=== PATIENT | female | born 1990 | race Caucasian/White ===

== ENCOUNTER → 2019-01-04 | Outpatient (CLI) | payer OTHER, SELFPAY ==
[2019-01-11 09:42] LABS: HPV APTIMA, High Risk Negative (Negative); HPV Reflexed? YES, CHARGE PATIENT
== END | disposition home or self-care (01) ==
LOC: LABSPEC 01-05 09:29
PROVIDERS: Visit Provider Obstetrics & Gynecology
DX: Z12.4 Encounter for screening for malignant neoplasm of cervix (principal)
CPT/HCPCS: 87624; 88175; G0145

== ENCOUNTER → 2019-02-07 | Outpatient (CLI) | payer OTHER, SELFPAY ==
[2019-02-07 11:17] LABS: Progesterone Level 1.01 ng/mL (See Comment)
== END | disposition home or self-care (01) ==
LOC: WOBLAB 10:10
PROVIDERS: Visit Provider Obstetrics & Gynecology
DX: N97.0 Female infertility associated with anovulation (principal)
CPT/HCPCS: 36415; 84144

== ENCOUNTER → 2019-03-10 | Outpatient (CLI) | payer OTHER, SELFPAY | END | disposition home or self-care (01) | PROVIDERS: Family Provider Family Medicine; PCP Family Medicine; Referring Provider Obstetrics & Gynecology; Visit Provider Obstetrics & Gynecology | DX: N97.0 Female infertility associated with anovulation (principal) | CPT/HCPCS: 36415; 84144 ==

== ENCOUNTER → 2019-04-11 | Outpatient (CLI) | payer OTHER, SELFPAY ==
[2019-04-12 09:10] LABS: Progesterone Level 13.91 ng/mL (See Comment)
== END | disposition home or self-care (01) ==
PROVIDERS: Family Provider Family Medicine; PCP Family Medicine; Visit Provider Obstetrics & Gynecology
DX: N97.0 Female infertility associated with anovulation (principal)
CPT/HCPCS: 36415; 84144

== ENCOUNTER → 2019-05-10 08:48 | Outpatient (CLI) | payer OTHER, SELFPAY ==
[2019-05-10 11:19] LABS: Progesterone Level 9.29 ng/mL (See Comment)
== END ==
PROVIDERS: Visit Provider Obstetrics & Gynecology
DX: N97.0 Female infertility associated with anovulation (principal)
CPT/HCPCS: 36415; 84144

== ENCOUNTER → 2019-06-14 16:00 | Outpatient (CLI) | payer OTHER, SELFPAY ==
[2019-06-15 12:16] LABS: Chlamydia Trachomatis by PCR Negative (Negative); Neisserai gonorrhoeae by PCR Negative (Negative); Probe Check PASS; Sample Adequacy Control PASS; Specimen Processing Control PASS
== END ==
PROVIDERS: Visit Provider Obstetrics & Gynecology
DX: Z11.3 Encounter for screening for infections with a predominantly sexual mode of transmission (principal)
CPT/HCPCS: 87491; 87591

== ENCOUNTER → 2019-06-15 17:19 | Outpatient (CLI) | payer OTHER, SELFPAY | PROVIDERS: Referring Provider Obstetrics & Gynecology; Visit Provider Obstetrics & Gynecology | DX: Z34.81 Encounter for supervision of other normal pregnancy, first trimester (principal); N39.0 Urinary tract infection, site not specified | CPT/HCPCS: 87086; 87088 ==

== ENCOUNTER → 2019-08-19 10:30 | Outpatient (CLI) | payer OTHER, SELFPAY ==
[2019-08-21 03:06] LABS: AFP MoM Value 1.32 (.); AFP Value-EIA 47.4 ng/mL (.); Comment Report (.); DIA MoM Value 0.83 (.); DIA Value-EIA 124.75 pg/mL (.); DSR (By Age) 757 (.); DSR (Second Trimester) 10000 (.); Gestat. Age Based On As provided (.); Gestational Age 17.3 WEEKS (.); Insulin Dep Diabetes No (.); Maternal Age At EDD 29.3 yr (.); hCG MoM 0.67 (.); hCG Value 19117 mIU/mL (.)
== END ==
PROVIDERS: Visit Provider Obstetrics & Gynecology
DX: Z34.82 Encounter for supervision of other normal pregnancy, second trimester (principal)
CPT/HCPCS: 36415; 82105; 82677; 84702

== ENCOUNTER → 2019-12-28 | Outpatient (CLI) | payer OTHER, SELFPAY | END | disposition home or self-care (01) | LOC: WOBLAB 08:42 | PROVIDERS: Visit Provider Obstetrics & Gynecology | DX: Z36.85 Encounter for antenatal screening for Streptococcus B (principal) | CPT/HCPCS: 87077; 87081; 87186 ==

== ENCOUNTER 2020-01-05 14:10 | Inpatient (IN) | payer OTHER, SELFPAY ==
[2020-01-05] VITALS (18 sets, daily range): BP systolic 125–151; BP diastolic 61–89; PULSE 67–85; RESP 15–18; TEMP 36.6–37.5; O2SAT 96–100; BMI 33.4
--- NOTE | 2020-01-05 | PLAC_PTH ---
PATIENT: BARB YBARRA LOC: WP U#:[id number] AGE/SX: 29/F ROOM: WP002 RE01/05/[address]: ARPIT Núñez : 1990 BED: 1 DIS: 01/08/2020 SPEC #: [id number] RECD: 01/05/20 19:08 STATUS: DANILO REQ #: [id number] RANGEL: 01/05/20 00:[address]: Jose Prado DEPT: SURGICAL PATHOLOGY RECD BY: Juan Pablo Mcgee ENTERED: 01/06/20 10:51 SP TYPE: PLACENTA OTHR DR: Adelia Flynn [facility] SARA Nieves Tissues: Placenta, NOS Procedures: Surgery Specimen Level V Comments: @ Ordering doctor for SUV edited from [email or web address] to @ by LAVERNE at 01/06/20 1243 @ Submitting doctor edited from [email or web address] to @ by LAVERNE at 01/06/20 1243 HEADER OPERATION: section PRE-OP DIAGNOSIS: Isoimmunization TISSUE SUBMITTED: Placenta MICROSCOPIC DIAGNOSIS Wheeler placenta (513 gm): Umbilical cord - trivascular with no inflammation. Placental membranes - minimal decidual chronic inflammation. Placental disc - organizing intraparenchymal hemorrhage, intravillous congestion, mild Nadine-Kei change and intervillous congestion. AM:js 01/10/20 MICROSCOPIC DESCRIPTION Slides are reviewed. GROSS DESCRIPTION SPECIMEN: PLACENTA / CLINICAL INFORMATION: A. Weight: 3.205 kg B. Gestational Age: 37 weeks C. Sex: Male PLACENTAL WEIGHT (POST FIXATION): 513 gm PLACENTAL DIMENSIONS: 16 x 15 x 3.5 cm PLACENTAL SHAPE: Usual ovoid PLACENTAL WEIGHT FOR GESTATIONAL AGE: Within 10-99th percentile MEMBRANES - Present A. Insertion: Marginal B. Site of rupture from edge: 4 cm from edge of placental disc C. Color of membrane: Alvares-dutta D. Abnormalities: None UMBILICAL CORD - Present A. Color: Alvares-dutta B. Insertion: Central C. Length: 23 cm D. Diameter: 1.1 cm E. Number of vessels: Three F. Abnormalities: None PLACENTAL DISC - Present A. Color of surface: Alvares-dutta B. surface abnormalities: None C. Maternal cotyledons: Intact with minimal tears D. Attached retro placental clot: No clot E. Cut surface: Dark red and spongy F. Lesions: A focal area of placental plaque is noted on the surface measuring 2.5 cm in greatest dimension. G. Separate clot: Absent SECTIONS SUBMITTED: 1. Membrane roll 2. Cord, maternal end, placental plaque 3. Cord, end 4. Placental disc, and maternal surfaces 5. Placental disc, and maternal surfaces 6. Placental disc, and maternal surfaces SJ:rg 01/09/20 TC:5 CPT: 20497
[2020-01-05] MEDS: Lactated Ringers 1,000 ML 50 ML IV (14:40)
[2020-01-05] MEDS: Oxytocin 30 units/NS 500 ml 30 UNITS/500 ML IV.SOLN IV (15:05)
[2020-01-05 15:15] LABS: Protein, Urine (Random) 15.9 mg/dL (<11.9); Protein:Creat Ratio 187 mg/g CRE (0-200); Prothrombin Time (Protime)PT. 12.3 SECONDS (11.7-14.9)
[2020-01-05 15:16] LABS: Partial Thromboplast Time 27.9 Seconds (24.1-36.2)
[2020-01-05 15:39] LABS: AST(SGOT) 13 U/L (15-37); Alanine Aminotransfer ALT/SGPT 13 U/L (13-56); Creatinine, Serum 0.55 mg/dL (0.55-1.02); EST Glomerular Filtration Rate 139 mL/min (>60); Est Glom Filt Rate - Afr Amer 168 mL/min (>60); Estimated Creatinine Clearance 141.29 ml/min; Uric Acid 4.7 mg/dL (2.6-6.0)
[2020-01-05] MEDS: Lactated Ringers 500 ML 999 ML IV (15:40)
[2020-01-05 16:24] LABS: Absolute Lymphocyte Count 1.41 X10^3/uL (0.83-4.51); Absolute Neutrophil Count 7.5 X10^3/uL (2.0-7.7); Basophil# 0.01 X10^3/uL; Basophil% 0.1 % (0-1); Eosinophil# 0.01 X10^3/uL; Eosinophils% 0.1 % (0-5); Hematocrit 31.7 % (37-47); Hemoglobin 10.2 g/dL (12.0-15.0); Lymphocyte # 1.41 X10^3/ul (4.0); Lymphocyte % 14.5 % (19-41); Mean Corp Hgb Conc 32.2 g/dL (32-36); Mean Corpuscular Hgb 26.3 pg (27.0-32.0); Mean Corpuscular Volume 81.7 fL (81-99); Monocyte# 0.73 X10^3/uL; Monocyte% 7.5 % (0-10); NRBC Flagged by Analyzer 0 % (0-5); Neutrophil # 7.46 X10^3/uL (2.7-7.7); Neutrophil % 76.9 % (47-70); Platelet Count 211 K/mm3 (150-450); RBC Distribution Width CV 14.8 % (11.6-14.6); RBC Distribution Width SD 43.4 fl (35.1-43.9); Red Blood Count 3.88 M/mm3 (4.2-5.4); White Blood Count 9.7 K/mm3 (4.4-11.0)
[2020-01-05] MEDS: Sodium Citrate/Citric Acid 30 ML UDC PO (17:07)
[2020-01-05] MEDS: Cefazolin 2 GM in 0.9% Normal Saline 100 ML IV (17:10)
--- NOTE | 2020-01-05 17:17 | PCM.HP.BLA ---
History and Physical Date of Admission: 01/05/20 OG ANTEPARTUM RECORD - HISTORY AND PHYSICAL (01/05/2020) Name: NELLY YBARRA History of This : This is a 29-year-old 1 para 0 who presented today to the office for a visit and was noted to have markedly elevated blood pressures. Specifically her initial blood pressure was approximately 160/120 and on her left went down to 150s over 110. 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 Given her elevated blood pressure at 37 weeks 2 days gestation, it was decided to have the patient proceed to labor and delivery for induction. labs were negative. OB Physician: KHOA 's Physician: PED CAN RECONDITIONER ...................................................................... : 1990 Age: 29 Address: [address] [place] [address] Phone: ([phone] Insurance Carrier: [facility] [id number] Emergency Contact: TORIBIO YBARRA/SPOUSE [phone] ...................................................................... Final GENESIS: 01/24/20 By Ultrasound: 8 weeks PARITY: (G-Total Pregnancies P-Fullterm,Premature,Induced AB,Spont AB, Ectopics, Multiple,Living) GENESIS CONFIRMATION: By LMP: 04/19/19 Final GENESIS: 01/24/20 OB PROBLEM LIST: Isoimmunization Anti-D: MFM to do weekly MCA dopplers and BPP; Growth at 36 weeks; delivery at [facility] at 37-38 weeks planned Wants AFP, Declines CF ALLERGIES: No Known Allergies MEDICATIONS: 28 mg iron-800 mcg tablet One pill by mouth once a day Zofran 8 mg tablet One pill by mouth three times a day prn nausea SOCIAL HISTORY: Smoking - Never Alcohol Use - RARELY Diet - no special diet Lifestyle - moderate stress lifestyle and Exercise - active work Employer - [employer] 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 Illicit Drug Use - None Sexual Activity - Spouse-Sig Other Name - Sher Spouse-Sig 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 130/62 0 174 - - Jul 21 JMW 4 12 + O 119/79 0 169 - - ANTEPARTUM NOTE(S): Jan 05 2020: Good FM, First BP 158/108, Second BP 162/94 Jan 03 2020: No PIH sxs; off work; rtn 2 days December 26 2020: Doing Well, MCA checks OK Nov 29 2019: Doing Well, seeing MFM weekly Oct 31 2020: CBC,OGCT,Antibody Screen,Rhogam Today Oct 04 2020: Glucola/Instructions Given, Good FM,Feeling Well Sep 06 2019: Doing Well, Comp OB U/S today Aug 09 2019: Undecided regardisng AFP today,Periodic nausea Jul 12 2019: NOB and PNV Today,Nausea Improving COMPREHENSIVE ANTEPARTUM NOTE(S): Jan 05 2020: Nelly presents here today with spouse for PNV with increased BP on 01/02 visit. Today first BP 158/108, repeat after 10 minutes laying on (L) side is 162/94. Denies headache or blurry vision and edema much better today being just slight. Good FM. CANELO Jan 05 2020: AROM / Pitocin nduction arranged for this afternoon. Consent signed. Induction literature given. kbm Jan 03 2020: H taken to OB. tkg Jan 03 2020: Nelly is being seen for PNV. Pt feeling well, increase swelling in feet. Laying on left side BP 132/60. Pt declines carey, dizziness or lightheadedness. AM Jul 15 2019: RI. HepB, HepC neg. EB Jul 12 2019: Nelly presents here today with spouse(Toribio) for PNV and NOB visit. 28 y.o. G 1 P 0 non-smoker at 12 weeks gestation and reports she continues with periodic nausea and doing well with use of Zofran. 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 Toribio works full-time at [employer] and supportive of this . Plans to deliver at [facility] with use of an Epidural. We discussed good nutrition and healthy snacks with ideal weight gain of 20-25 lbs(with dietary sheets given) and encouraged staying well hydrated with 1-2 gallons of water/fluids with benefits of same given as well as she plans to breast feed. Exercise/Activity discussed and reminded of lifting restriction of 20-25 lbs with common sense. Review of major body changes in breasts, digestion and abdomen. Discussed common discomforts in with helpful hints for each(constipation, diarrhea, hemorrhoids, urinary frequency, low back pains, round ligament pains, leg cramps, varicose veins, difficulty breathing with fetus growing pressing on the diaphragm, headache, heartburn, insomnia, Himrod Loo and production of excessive vaginal discharge in some pregnancies) with handout given. Had chickenpox as a child and has two house cats and does not change litter. Genetic screening form filled out and wants AFP(but checking with her Insurance to make sure it is covered) and declines CF with consent signed. labs drawn today via undersigned without problem and sent to [facility]. CANELO Jun 15 2019: Nelly is being seen for UTI Check. Pt started with burning with urination and having trouble urinating after she had appt with Dr. Burt yesterday in [place]. She also complains of mucus discharge. Long dip shows trs protein, pH 5.0, blood +++, specific gravity 1.202, ketones +++ and all others negative. Medications and allergies are up to date. AM Jun 15 2019: Yesterday after leaving exam she states she started to have severe pain with urination. Describes as burning, stabbing, sharp, severe pain while urinating. Mild for the last 24 hours. Urine shows +trace protein, pH 5.0, +++ blood, sg of 1.020 and +++ ketones. Temp 98.0. Denies radiating pain to flanks. Will send UA C. Rx sent for macrobid 100mg BID x5d and pyridium 200mg TID with meals for two days. Will call or return if does not resolve. - Jun 14 2019: Nelly presents here today with spouse(Sher) for Missed Menses appointment. 28 y.o. G 1 P 0 non-smoker with regular menses with use of Prometrium and LMP of 04-19-19 with use of Letrozole for assistance with contraception. Positive UPT today in our Office and presents at 8 weeks today with an approximate GENESIS of 01-26-20. Reports slight cramping periodically and denies spotting/bleeding thus far in . Reports daily nausea and vomiting and would like to have an Rx for Zofran today to [facility] Currently taking an OTC Gummy Vitamin without problems with Educational Materials given. Last pap screening in 12/2018 with ASCUS - HPV. Medications and Allergies listed. CANELO Jun 14 2019: ok Apr 05 2019: Nelly is being seen for follow up visit. Pt was seen December 2018 for annual and has been attempting . Pt states her periods have been regular on Prometrium and Letrozole. Progesterone done 03-10-19. LMP 03-21-19. Medications and allergies are up to date. AM Apr 05 2019: Two progesterone levels so far and next due early April. First about 1 and second 9.5. Letrazolel dose increased this cycle to 5 mg. REVIEW OF SYSTEMS: GENERAL - Denies fever, or chills SKIN - Denies rash, new skin lesions, or change in moles EYES - Denies blurred vision, or change in visual acuity EARS - Denies ear pain, or difficulty hearing NOSE - Denies nasal congestion, discharge, or bleeding MOUTH - Denies sore throat, or difficulty swallowing NECK - Denies pain or swelling RESPIRATORY - Denies shortness of breath, cough, wheezing CARDIOVASCULAR - Denies palpitations, chest pain, orthopnea, PND, peripheral edema, syncope or claudication GASTROINTESTINAL - Denies nausea, vomiting, diarrhea, constipation, Denies abdominal pain, melena and or bright red blood GENITOURINARY - Denies dysuria, frequency of urination, urgency, or hesitancy MUSCULOSKELETAL - Denies joint or muscle pain, or back pain NEUROLOGICAL - Denies localized numbness, weakness, or tingling PSYCHIATRIC - Denies depression, anxiety, substance abuse or suicide attempts ENDOCRINE - Denies heat or cold intolerance, weight loss or gain, increasing thirst HEMATO-IMMUNOLOGIC - Denies easy bruising, bleeding, oral ulcerations or recurrent infections GENETICS SCREENING: Age 35+ years: No Thalassemia: No Neural Tube Defect: No Down Syndrome: No TRACEY-SACHS: No Sickle Cell Disease: No Hemophilia: No Musc. Dystrophy: No Cystic Fibrosis: No-declines screening Ab Chorea: No Mental Retardation: No Fragile X: No Other genetic: No Other defects: No SABs/still births: No Drugs since LMP: Yes Comments: Macrobid, pyridium, Zofran,Letrozole INFECTION HISTORY: High risk AIDS: No High risk Hepatitis: No Exposed to TB: No Exposed to Herpes: No Rash/viral illness since LMP: No History of STD: No MENSTRUAL HISTORY: *Menses Amount/Duration: 5 daysMenses Regularity: RegularFrequency: monthlyMenarche (Age Onset): 12* PAST SUMMARY: PARITY: 1. Total Pregnancies............ 1 2. Full Term Pregnancies........ 0 3. Premature.................... 0 4. Abortions - Induced.......... 0 5. Abortions - Spontaneous...... 0 6. Ectopics..................... 0 7. Multiple Births.............. 0 8. Living Children.............. 0 PHYSICAL EXAMINATION General Appearence: 29 yo female in no acute distress Vital Signs: AF, VSS Heart: RRR without rubs or gallops Lungs: CTA x 2 Breasts: deferred Abdomen: gravid Pelvis: Cervix: 2+/50 percent effaced/intact Presentation: cephalic Station: -2 Fetus: Size: AGA Movement: present Heart: present Labs for : NELLY YBARRA since 04/29/2019 ORDER DATEIN DESCRIPTION VALUE UNITS RANGE A+ COMMENT CULTURE, GROUP B STREPTOCOCCUS 12/27/19 NOTE Original Ordering Provider: George SHI Culture ORGANISM 1: Streptococcus agalactiae (B) Amount Growth Growth Streptococcus agalactiae (B): REACTION Ampicillin $ <=0.25 S Benzylpenicillin NF <=0.06 S Ceftriaxone $ <=0.12 S Clindamycin $$ >=1 R Inducable Clindamycin Resistan NEG Linezolid $$$$ <=2 S Vancomycin $ 0.5 S Reference Range: S= Susceptible, I= Intermediate, R= Resistant MICS are expressed in micrograms per mL (NF) indicates non-formulary drug at [facility]. Approval by Infectious Disease Specialist required before non-formulary drugs may be ordered and/or dispensed. Testing performed on Vitek 2 instrument Reviewed by GEORGE CROUCH ANTIBODY ID 11/01/19 NOTE Original Ordering Provider: GEORGE CROUCH ANTIBODY ID ANTIBODY(S) IDENTIFIED: _Anti-D 11/01/19.1425.DE LA CRUZ. [facility] ANTIBODY SCREEN 11/01/19 NOTE Original Ordering Provider: GEORGE BURT ANTIBODY SCR positive negative A Reviewed by SEDA GLUCOSE CHALLENGE 50GM 1 HOUR 11/01/19 NOTE Original Ordering Provider: GEORGE BURT GLUCOSE CHALLENGE 50GM 1 HOUR GLUCOSE CHALLENGE 50 GMS 1 HOUR GLUCOSE 1HR 138 mg/dl 70 - [address] [facility] CBC + DIFF 11/01/19 NOTE Original Ordering Provider: GEORGE BURT CBC + DIFF CBC-COMPLETE BLOOD COUNT WBC 11.8 x 10EE3/UL 4.5 - 10.8 H RBC 4.18 x 10EE6/UL 4.10 - 5.30 HEMOGLOBIN 10.8 g/dl 12.0 - 16.0 L HEMATOCRIT 32.8 % 34.0 - 46.0 L MCV 78 fl 80 - 99 L MCH 26 pg 27 - 33 L MCHC 33 X10 3 32 - 36 RDW/CV 13.8 % 12.0 - 15.6 PLATELET 301 x10EE3/UL 150 - 450 MPV 9.4 fl 6.6 - 10.5 AUTOMATED DIFFERENTIAL NEUT % 80.4 % 46.0 - 76.0 H LYMPH % 13.0 % 20.0 - 45.0 L MONOS % 5.9 % 0.0 - 10.0 EO % 0.5 % 0.0 - 7.0 BASO % 0.2 % 0.0 - 2.0 LYMPH # 1.50 x10EE3/UL 0.80 - 2.80 NEUT # 9.50 x10EE3/UL 1.50 - 7.10 H MONO # 0.70 x10EE3/UL 0.20 - 1.00 EO # 0.10 x10EE3/UL 0.00 - 0.50 BASO # 0.00 x10EE3/UL 0.00 - 0.10 MANUAL DIFF N/A MORPHOLOGY N/A Reviewed by SEDA AFP TETRA QUAD SCREEN 08/19/19 NOTE Original Ordering Provider: George Burt TEST RESULTS: *Screen Negative* . GESTATIONAL AGE 17.3 WEEKS . GEST AGE FROM As provided . [facility] AGE @[age]ESSI [age] . RACE . WEIGHT 173 lbs . INS DEP DIABETE No . MULT GESTATION No . AFP VALUE-EIA 47.4 ng/mL . AFP MOM VALUE 1.32 . HCG VALUE 60589 mIU/mL . HCG MOM 0.67 . UE3 VALUE 1.17 ng/mL . UE3 MOM 1.05 . TATA VALUE-EIA 124.75 pg/mL . TATA MOM VALUE 0.83 . OSBR RISK 4529 . DSR 2ND TRIMEST 41008 . DSR (BY AGE) 757 . T18 RISK Not increased . T18 (BY AGE) 1:2949 . INTERPRETATION . Interpretation: Screen Negative This result is screen negative for OSB, Down Syndrome and Trisomy 18. The AFP MoM and patient specific risks calculated are based on the gestational age and the clinical information provided. This test can identify up to 80% of open neural tube defects. Closed neural tube defects and some open defects may not be detected by this test. The combination of maternal age, AFP, hCG, uE3, and TATA identifies 75-80% of Down Syndrome. The combination of maternal age, AFP, hCG and uE3 identifies 60% of Trisomy 18 pregnancies. The [place] [employer] Obstetricians and Gynecologists recommends amniocentesis be offered to women age 35 and older. Recalculations are not recommended when gestational dating by LMP and ultrasound are within 10 days. Reviewed by GEORGE HEPATITIS C AB IA [[facility] 07/12/19 NOTE Original Ordering Provider: GEORGE BURT HEPATITIS C AB IA Negative NEGAT [address] [place] [address] Tanner Garcia III, M.D. [id number] Reviewed by JULIENNE HEP B SURFACE AG [[facility]] 07/12/19 NOTE Original Ordering Provider: GEORGE BURT HEPATITIS B SURF. AG Negative NEGAT [address] [id number] Tanner Garcia III, M.D. [id number] Reviewed by JULIENNE RUBELLA IGG ANTIBODY [[facility] 07/12/19 NOTE Original Ordering Provider: GEORGE BURT RUBELLA IGG AB, QUAL Positive NEGAT A Sample is considered positive for IgG antibodies to rubella virus. A positive result indicates previous exposure to Rubella virus or vaccination. RUBELLA IGG AB 6.38 Indexlue Index values are interpreted as follows: Negative specimens <0.90 Equivocol specimens 0.90 to 0.99 Positive specimens >0.99 The magnitude of the measured result is not indicative of the amount of antibody present. [address] [place] [address] Tanner Garcia III, M.D. [id number] Reviewed by JULIENNE RPR [[facility] 07/12/19 NOTE Original Ordering Provider: GEORGE BURT RPR Non Reactive NR [address] [place] [address] Tanner Garcia III, M.D. [id number] Reviewed by JULIENNE BB TYPE 07/12/19 NOTE Original Ordering Provider: GEORGE BURT BB TYPE TYPE, Rh, AND SCREEN ABO O RH NEG ANTIBODY SCR negative Reviewed by GEORGE URINALYSIS 07/12/19 NOTE Original Ordering Provider: GEORGE BURT URINALYSIS URINALYSIS SPECIMEN TYPE UNSPECIFIED COLOR p.yel NORMAL: YELLOW CLARITY clear NORMAL: CLEAR PH 7 NORMAL: 5.0-8.0 PROTEIN NEG NORMAL: NEGATIVE GLUCOSE NORM NORMAL: NORMAL KETONE NEG NORMAL: NEGATIVE BILIRUBIN NEG NORMAL: NEGATIVE BLOOD NEG NORMAL: NEGATIVE UROBILINOG NORM NORMAL: NORMAL SP GRAVITY 1.010 NORMAL: 1.010-1.030 NITRITE NEG NORMAL: NEGATIVE LEUKOCYTES 100 NORMAL: NEGATIVE A MICROSCOPIC SEE BELOW MICROSCOPIC WBC 1-5 0-5/hpf RBC NONE 0-3/hpf CASTS NONE CRYSTALS NONE AMORPHOUS NONE BACTERIA TRACE EPI CELLS OCC MUCOUS NONE YEAST NONE Reviewed by GEORGE TSH 07/12/19 NOTE Original Ordering Provider: GEORGE BURT TSH 0.73 uIU/ml 0.34 - 5.60 Reviewed by GEORGE CBC + DIFF 07/12/19 NOTE Original Ordering Provider: GEORGE BURT CBC + DIFF CBC-COMPLETE BLOOD COUNT WBC 9.8 x 10EE3/UL 4.5 - 10.8 RBC 4.65 x 10EE6/UL 4.10 - 5.30 HEMOGLOBIN 11.9 g/dl 12.0 - 16.0 L HEMATOCRIT 36.2 % 34.0 - 46.0 MCV 78 fl 80 - 99 L MCH 26 pg 27 - 33 L MCHC 33 X10 3 32 - 36 RDW/CV 14.9 % 12.0 - 15.6 PLATELET 253 x10EE3/UL 150 - 450 MPV 9.7 fl 6.6 - 10.5 AUTOMATED DIFFERENTIAL NEUT % 68.4 % 46.0 - 76.0 LYMPH % 22.3 % 20.0 - 45.0 MONOS % 8.3 % 0.0 - 10.0 EO % 0.6 % 0.0 - 7.0 BASO % 0.4 % 0.0 - 2.0 LYMPH # 2.20 x10EE3/UL 0.80 - 2.80 NEUT # 6.70 x10EE3/UL 1.50 - 7.10 MONO # 0.80 x10EE3/UL 0.20 - 1.00 EO # 0.10 x10EE3/UL 0.00 - 0.50 BASO # 0.00 x10EE3/UL 0.00 - 0.10 MANUAL DIFF N/A MORPHOLOGY N/A Reviewed by GEORGE Initial OB Labs 07/12/19 HIV Test negative (Scanned) Negative Reviewed by GEORGE CULTURE, URINE 06/15/19 NOTE Original Ordering Provider: MIKI Flynn Urine Culture ORGANISM 1: Mixed Gram Positive Organisms [place] Count >100,000 MIX CULTURE Mixed contaminants. Submit a new specimen if indicated. Reviewed by GEORGE Urine Culture 06/15/19 Urine Culture mixed gram positive (Scanned) No growth Reviewed by JULIENNE MIKE/GUMARO [facility] BY PCR 06/14/19 NOTE Original Ordering Provider: George Burt [facility] PCR Negative Negative NG BY PCR Negative Negative Reviewed by JULIENNE PROGESTERONE LEVEL 05/10/19 NOTE Original Ordering Provider: George Burt PROGESTERONE 9.29 ng/mL See Comment Progesterone Reference Table: UNITS Female: Follicular 0.15 - 1.40 ng/mL Luteal 3.34 - 25.56 ng/mL Mid-luteal 4.44 - 28.03 ng/mL Postmenopausal 0.0 - 0.73 ng/mL : 1st Trimester 11.22 - 90.00 ng/mL 2nd Trimester 25.55 - 89.40 ng/mL 3rd Trimester 48.40 -422.50 ng/mL Reviewed by GEORGE Impression /Plan: 37-week 2-day intrauterine with severe gestational hypertension and iso-immunized patient. Plan Pitocin induction and amniotomy. However, upon placing the patient on the monitor a severe late deceleration was noted with nonreassuring heart tones afterwards. Plan to proceed with section. Preparations in progress for delivery. Procedure Criteria Procedure Type: Essential Procedure Essential: Yes Criteria Statement: On 10/25/2019 the [place] Department of Health ([facility]) Public Order signed by [facility] Director Rina Sr M.D., regarding the Management of Non-Essential Surgeries and Procedures for the purpose of preserving Personal Protective Equipment (PPE) and critical hospital capacity and resources within [place] went into effect as of 10/26/2019 at 5:00PM. According to the [facility] Public Order: This action will remain in full force and effect until the State of Emergency declared by the Governor no longer exists or the Director of the [facility] rescinds or modifies this Order. This [facility] order stated all non-essential or elective surgeries and procedures that utilize PPE should be delayed unless there is undue risk to the current or future health of a patient. After reviewing the aforementioned [facility] Public Order and the patient's clinical case, I have determined that the scheduled procedure meets the criteria to go forward. Risk to Patient if Procedure Delayed: Risk of rapidly worsening to severe symptoms if delayed
--- NOTE | 2020-01-05 18:14 | OP.PCM_ITS ---
Delivery Classification: OSWALDO Final GENESIS: 01/24/20 Final GENESIS Source: US <20 weeks Gestational age: 37 Weeks and 2 Days doctor who attended delivery (if requested by OB): Alesha Forrest - 37+ wks gestation land surveying manager: Barrera Gibson Type of Anesthesia:: Spinal - With Duramorph Implants Used: None Date of Procedure: 01/05/20 Pre-Operative Diagnosis: Severe Gestational Hypertension, Increasing Stress, Rh Isoimmunization Post-Operative Diagnosis: Severe Gestational Hypertension, Increasing Stress, Rh Isoimmunization, Suspected Partial Abruption Description of Procedure: Surgeon: Jose Prado MD, FACOG Anesthesia: Jihan Escalante CRNA Anesthesia: Spinal with Duramorph Procedure: Primary Low Transverse Cervical Caesarean Section Findings: Viable male with Apgars of 8/9 in occiput anterior presentation with clear amniotic fluid and normal three-vessel placenta. Indication: This is a 29-year-old who presents for her first at 37+ weeks gestation. She presented to the office today with markedly elevated blood pressures and upon presentation to labor and delivery there was a profound late deceleration followed by a category 2 tracing. Patient was placed on oxygen and the heart tones recovered but when oxygen was taken off a category 2 tracing was again noted. Given this it was decided proceed with section. The patient has been counseled regarding the risk and indications of this procedure including the possibility of bleeding infection and injury to surrounding structures such as bowel bladder. All questions were answered. Procedure: Patient was taken to the operating room where after spinal anesthesia was placed, the patient was prepped and draped in usual sterile fashion and a Sosa catheter was placed. The abdomen was entered through a Pfannenstiel incision and peritoneum was entered bluntly. After developing a bladder flap on the lower uterine segment a low transverse incision was made on the uterus and head was easily delivered onto the operative field the nose mouth and oropharynx were bulb suctioned. Subsequently a viable male infant was born with Apgars of/9. The was noted to cry move all extremities vigorously on the operative field. The umbilical cord was doubly clamped and ligated and handed to the nursery personnel who were present for the delivery. Placenta was delivered and noted to be 3 vessels and normal. Uterus was exteriorized and remaining placental tissue was removed. The uterus was then closed in 2 layers first with running locked 0 Vicryl suture followed by a second imbricating layer with 0 Vicryl suture. 0 Vicryl suture was then used in a horizontal mattress interrupted fashion to affect final hemostasis of the uterine incision line. Normal fallopian tubes and ovaries were visualized and the uterus was returned to the pelvis. Hemostasis was noted and rectus abdominis muscles were reapproximated in the midline with interrupted Number 0 Vicryl suture in a horizontal mattress fashion. Fascia was closed with running Number 1 PDS Strata fix suture. Subcutaneous tissue was irrigated with copious amounts of saline solution and then closed with running 3-0 Vicryl suture. Skin was closed with 4 -0 monocryl suture in a running subcuticular fashion. Steri strips and a Mepilex dressing were placed across the incision. The patient tolerated the procedure well and was taken to the recovery room in satisfactory condition. Sponge, needle, and instrument counts were all reportedly correct. EBL was less than 500 cc. Ancef 2 gms IV was given prior to the procedure. Spicemen to Pathology: Placenta Complications: None Amniotic Fluid Description: Clear Placenta Disposition: Sent to Pathology Specimen(s) sent to pathology: Placenta Drain: Sosa to straight drain Fluids Replaced: Crystalloid Cord Entanglement: None Cord Vessel Description: 3 Vessels Esitmated Blood Loss (ml): 500 cc Infant Gender: Male (1 minute): 8 (5 minute): 9 Antibiotic Given: Ancef 2 grams IV x1 Pt instructed on risks of surgery: Bleeding, Infection, Injury to surrounding structure(s) including bowel and bladder Complications: None - Admit VTE Documentation VTE Present on Admission: Yes VTE Mechan Device Prophylaxis: SCD's VTE Pharm Prophylaxis ordered?: No Reason prophylaxis not ordered:: Treatment Not Indicated
[2020-01-05] MEDS: Methylergonovine 0.2 MG/ML Ampul IM (18:25)
[2020-01-05] MEDS: Oxytocin 30 units/NS 500 ml 30 UNITS/500 ML IV.SOLN 167 UNITS IV (18:40)
--- NOTE | 2020-01-05 19:05 | DCINST_ITS ---
Discharge Diet: No Restrictions Discharge Activity: May not drive while taking narcotic pain medications., May Shower, May Take a Tub Bath May resume sexual activity in: 4-6 weeks Lifting Restrictions: 20 pounds Additional Activity Instructions:: Nothing in the vagina for 4-6 weeks. You may return to work/school in 6 weeks. Call your doctor if your incision/area has: Continuous Slow Oozing, Sudden Increased Bleeding, Increased Pain/ Swelling, Increased Redness, Foul Smelling Discharge Call your doctor if you observe: Inability to urinate, Inability to have a bowel movement, Using more than one pad per hour Additional Instructions: If you experience any of the following, contact your healthcare provider. * Bleeding that soaks a pad every hour for 2 hours * Fever 100.4 or higher * Unrelieved incision or abdominal pain * Swelling, redness, discharge or bleeding from your incision or episiotomy site * Your incision begins to separate * Problems urinating (including inability to urinate or burning while urinating). * Visual changes * Severe headache * Flu-like symptoms * Pain or redness in one of both of your breasts * Pain, warmth, tenderness or swelling in your legs, especially the calf area * Frequent nausea and vomiting * Symptoms of depression or anxiety If you experience any of the following, call 911 or go to the nearest Emergency Room. * Chest pain * Problems breathing * Seizure activity * Partial or complete paralysis of a body part, slurred speech, weakness or drooping of the face, or a sudden inability to walk or hold your balance Allergies/Adverse Reactions: Allergies No Known Allergies Allergy (Verified 01/05/20 14:21) Medications to take at Discharge Docusate Sodium [Colace] 100 mg PO BID PRN PRN #60 cap 01/05/20 Ferrous Sulfate [Iron] 325 mg PO DAILY 01/05/20 Oxycodone [Oxyir] 5 mg PO Q6H PRN PRN 7 Days #20 tablet 01/05/20 Vits [Prenatabs FA] 1 tab PO DAILY 01/05/20 The following prescriptions were given: Docusate Sodium [Colace] 100 mg PO BID PRN PRN #60 cap PRN Reason: Constipation Transmission Status: Pending to [id number] Oxycodone [Oxyir] 5 mg PO Q6H PRN PRN 7 Days #20 tablet PRN Reason: Pain Score 6-10/10 Transmission Status: Received by [facility] [id number] Follow-Up: Call to make an appointment with your doctor for an incision check in 1-2 weeks. You will also need a 6 week post- follow up appointment. Test results from this visit will be discussed in further detail at your follow- up appointment, if applicable. Please Follow Up With: Jose Prado MD - [phone] When: Call to make an appointment for an incision check in 2 weeks. Primary Care Physician: Jeannine Mcdowell PA [Primary Care Provider] -
[2020-01-05 19:13] LABS: Pathology Specimen OB SEE PATHOLOGY REPORT
--- NOTE | 2020-01-05 21:02 | NURSING ---
mother O- baby O+, lab called by this RN-nigel to draw rh - mother work up in morning with morning labs
[2020-01-05] MEDS: Lactated Ringers 1,000 ML 100 ML IV (21:41)
[2020-01-06] VITALS (11 sets, daily range): BP systolic 113–132; BP diastolic 66–84; PULSE 74–98; RESP 14–24; TEMP 36.2–37.4; O2SAT 93–99
[2020-01-06] MEDS: Ketorolac 30 MG/ML Syringe IV ×4 (00:01→18:20)
[2020-01-06] MEDS: Cefazolin 1 GM/50 ML BAG IV ×2 (00:29→09:47)
--- NOTE | 2020-01-06 03:08 | NURSING ---
report received from janes ACEVEDO. this rn to assume care of pt at this time.
[2020-01-06 05:17] LABS: Hematocrit 29.3 % (37-47); Hemoglobin 9.3 g/dL (12.0-15.0); Mean Corp Hgb Conc 31.7 g/dL (32-36); Mean Corpuscular Hgb 26.3 pg (27.0-32.0); Mean Corpuscular Volume 82.8 fL (81-99); Mean Platelet Vol. 12.4 fl (6.2-12.0); Platelet Count 169 K/mm3 (150-450); RBC Distribution Width CV 14.7 % (11.6-14.6); RBC Distribution Width SD 43.8 fl (35.1-43.9); Red Blood Count 3.54 M/mm3 (4.2-5.4)
[2020-01-06] MEDS: 0.9% Saline Lock 10 ML Syringe IV ×5 (06:09→18:20)
[2020-01-06] MEDS: oxyCODONE 5 MG Tablet PO ×2 (08:06→21:16)
--- NOTE | 2020-01-06 08:23 | PN.OBGYN_ITS ---
Subjective: Feeling sore, but okay with IV pain medication. Has not been out of bed yet. Would like to try after breakfast. Having latch issues, but otherwise denies concerns. Objective: VSS. Fundus is firm, midline, u/1. Incision is CDI. SCDs on and in bed. Lochia rubra moderate. latch issues with flat nipples. - Physical Exam Vitals/I&O's: Vital Signs Temp Pulse Resp BP Pulse Ox 97.1 F L 85 16 128/75 H 97 01/06/20 03:00 01/06/20 06:09 01/06/20 06:09 01/06/20 03:00 01/06/20 06:09 Oxygen Delivery Method Room Air Weight: 93.894 kg Body Mass Index (BMI) 33.4 Intake and Output for Last 24 Hours 01/04/20 01/05/20 01/06/20 23:59 23:59 23:59 Intake Total 2782.27 / 2782.27 1865.00 / 1865.00 Output Total 300 / 300 820 / 820 Balance 2482.27 / 2482.27 1045.00 / 1045.00 General: Alert, Oriented x3, Cooperative HEENT: Atraumatic, PERRLA, EOMI, Normocephalic Neck: Supple, No JVD, Negative Carotid Bruits Lungs: Clear to auscultation, Normal air movement Cardiovascular: Regular rate, No murmurs Abdomen: Bowel Sounds Present, Soft, Non Tender, - - Incision is CDI Extremities: No edema, Capillary Refill Less than 3 Seconds Skin: No rashes, No breakdown Musculoskeletal: No Tenderness to Palpation of Joints or Extremities Neurological: Cranial nerves II-XII grossly intact Psych/Mental Status: Normal Affect, Appropriate Microbiology Past 72 Hours 01/05/20 14:49 Mucosa - Nasopharyngeal Coronavirus COVID-19 PCR - Final Laboratory Results 01/05/20 14:40: WBC 9.7, RBC 3.88 L, Hgb 10.2 L, Hct 31.7 L, MCV 81.7, MCH 26.3 L, MCHC 32.2, RDW Std Deviation 43.4, RDW Coeff of Bruno 14.8 H, Plt Count 211, MPV 13.0 H, Immature Gran % (Auto) 0.900, Neut % (Auto) 76.9 H, Lymph % (Auto) 14.5 L, Crowley % (Auto) 7.5, Eos % (Auto) 0.1, Baso % (Auto) 0.1, Absolute Neuts (auto) 7.5, Absolute Lymphs (auto) 1.41, Nucleated RBC % 0 01/05/20 14:40: Blood Type O NEGATIVE, Antibody Screen POSITIVE H, Antibody Identification ANTI-D 01/05/20 14:40: PT 12.3, INR 1.0, APTT 27.9 01/05/20 14:40: Creatinine 0.55, Estim Creat Clear Calc 141.29, Est GFR (MDRD) Af Amer 168, Est GFR (MDRD) Non-Af 139, Uric Acid 4.7, AST 13 L, ALT 13 01/05/20 14:40: U Random Total Protein 15.9 H, Urine Creatinine 84.90, Protein/Creatinin Ratio 187 01/06/20 04:55: WBC 12.0 H, RBC 3.54 L, Hgb 9.3 L, Hct 29.3 L, MCV 82.8, MCH 26.3 L, MCHC 31.7 L, RDW Std Deviation 43.8, RDW Coeff of Bruno 14.7 H, Plt Count 169, MPV 12.4 H 01/06/20 04:55: Screen NEGATIVE, Baby's Blood Type O POSITIVE, Baby's LORIE POSITIVE Current Medications Acetaminophen (Tylenol) 1,000 mg PO Q8H PRN PRN Reason: Pain Score 1-3/10 Bisacodyl (Dulcolax) 10 mg RECTAL UD PRN PRN Reason: If no BM Diphenhydramine HCl (Benadryl) 25 mg PO Q6H PRN PRN PRN Reason: ITCHING Stop: 01/06/20 19:13 Hydralazine HCl (Apresoline Iv) 10 mg IV X1 PRN PRN Reason: Elevated BP Hydrocortisone (Hytone) 1 applic TOPICAL TID PRN PRN; Protocol PRN Reason: Discomfort Lactated Ringer's () 1,000 mls @ 100 mls/hr IV .Q10H ELDER Last Admin: 01/06/20 06:47 Dose: Not Given Documented by: Naloxone HCl 4 mg/ Dextrose 504 mls @ 0 mls/hr IV .Q0M PRN; Protocol PRN Reason: Respiratory depression Cefazolin Sodium () 1 gm in 50 mls @ 150 mls/hr IV Q8H [facility] Stop: 01/06/20 09:19 Last Infusion: 01/06/20 00:49 Dose: Infused Documented by: Ibuprofen (Motrin) 600 mg PO Q6H PRN PRN PRN Reason: Pain Score 1-3/10 Ketorolac Tromethamine (Toradol (Bkc)) 30 mg IV Q6H [facility] Stop: 01/07/20 18:01 Last Admin: 01/06/20 06:09 Dose: 30 mg Documented by: Labetalol HCl (Trandate) 20 mg IV X1 PRN PRN Reason: Elevated BP Labetalol HCl (Trandate) 40 mg IV X1 PRN PRN Reason: Elevated BP Labetalol HCl (Trandate) 80 mg IV X1 PRN PRN Reason: Elevated BP Methylergonovine Maleate (Methergine) 0.2 mg IM X1 PRN PRN Reason: Uterine Atony Last Admin: 01/05/20 18:25 Dose: 0.2 mg Documented by: Nalbuphine HCl (Nubain) 5 mg IV Q3H PRN PRN PRN Reason: ITCHING Stop: 01/06/20 19:13 Naloxone HCl (Narcan) 0.02 mg IV Q1M PRN PRN Reason: RR <10 and pt unresponsive Ondansetron HCl (Zofran) 4 mg IV Q4H PRN PRN PRN Reason: Nausea Oxycodone HCl (Oxyir) 5 - 10 mg PO Q4H PRN PRN PRN Reason: Pain Score 4-10/10 Last Admin: 01/06/20 08:06 Dose: 5 mg Documented by: Prochlorperazine Edisylate (Compazine Iv) 10 mg IV Q6H PRN PRN PRN Reason: NAUSEA Senna/Docusate Sodium (Senokot-S, Rema-Colace) 0 tablet PO DAILY PRN PRN Reason: Constipation Simethicone (Mylicon) 80 mg PO PCHS PRN PRN Reason: Indigestion/stomach pain Sodium Chloride () 5 - 15 ml IV UD PRN PRN Reason: SALINE FLUSH Last Admin: 05/29/20 06:09 Dose: 10 ml Documented by: Medical Necessity - Tobacco Use Smoking Status: Never smoker Assessment/Plan A/P: POD #1 Primary Csection for maternal hypertension and intolerance with induction Normal involution and course Will attend to get out of bed this AM Wishes to get help today from Expect discharge on POD #3
--- NOTE | 2020-01-06 08:28 | NURSING ---
at 0756, dr wai crook called and order obtained to given oxyir now for painrelief
--- NOTE | 2020-01-06 13:27 | NURSING ---
at 1122, mo velasco, notified about pt's RH isoimmunization and questioned the need for rhogam. dr crook to be consulted and will get back to this nurse. at 1244, kirby, office nurse for mo velasco, phoned this nurse and informed this nurse that patient does not need rhogam due to RH sensitized
[2020-01-06] MEDS: Senna/Docusate Sodium 1 Tablet PO (21:16)
[2020-01-07] MEDS: Ketorolac 30 MG/ML Syringe IV ×4 (00:10→18:29)
[2020-01-07 00:20] VITALS: BP 116/68; PULSE 82; RESP 18; TEMP 36.8; O2SAT 98
[2020-01-07 04:00] VITALS: BP 116/68; PULSE 60; RESP 18; TEMP 36.8
[2020-01-07 09:02] VITALS: BP 137/85; PULSE 84; RESP 18; TEMP 36.7; O2SAT 96
--- NOTE | 2020-01-07 09:14 | PCM.PN.OB ---
Subjective: doing well no complaints pain controlled no CP SOB N V ambulating well tolerating po lochia moderate, going well - Physical Exam Vitals/I&O's: Vital Signs Temp Pulse Resp BP Pulse Ox 98.0 F 84 18 137/85 H 96 01/07/20 09:02 01/07/20 09:02 01/07/20 09:02 01/07/20 09:02 01/07/20 09:02 Oxygen Delivery Method Room Air Weight: 207 lb Body Mass Index (BMI) 33.4 Intake and Output for Last 24 Hours 01/05/20 01/06/20 01/07/20 23:59 23:59 23:59 Intake Total 2782.27 / 2782.27 1915.00 / 1915.00 Output Total 300 / 300 2220 / 2220 Balance 2482.27 / 2482.27 -305.00 / -305.00 General: Alert, Oriented x3 Abdomen: - - C/D/I Microbiology Past 72 Hours 01/05/20 14:49 Mucosa - Nasopharyngeal Coronavirus COVID-19 PCR - Final Current Medications Acetaminophen (Tylenol) 1,000 mg PO Q8H PRN PRN Reason: Pain Score 1-3/10 Bisacodyl (Dulcolax) 10 mg RECTAL UD PRN PRN Reason: If no BM Hydralazine HCl (Apresoline Iv) 10 mg IV X1 PRN PRN Reason: Elevated BP Hydrocortisone (Hytone) 1 applic TOPICAL TID PRN PRN; Protocol PRN Reason: Discomfort Naloxone HCl 4 mg/ Dextrose 504 mls @ 0 mls/hr IV .Q0M PRN; Protocol PRN Reason: Respiratory depression Ibuprofen (Motrin) 600 mg PO Q6H PRN PRN PRN Reason: Pain Score 1-3/10 Ketorolac Tromethamine (Toradol (Bkc)) 30 mg IV Q6H [facility] Stop: 01/07/20 18:01 Last Admin: 01/07/20 06:01 Dose: 30 mg Documented by: Labetalol HCl (Trandate) 20 mg IV X1 PRN PRN Reason: Elevated BP Labetalol HCl (Trandate) 40 mg IV X1 PRN PRN Reason: Elevated BP Labetalol HCl (Trandate) 80 mg IV X1 PRN PRN Reason: Elevated BP Methylergonovine Maleate (Methergine) 0.2 mg IM X1 PRN PRN Reason: Uterine Atony Last Admin: 01/05/20 18:25 Dose: 0.2 mg Documented by: Naloxone HCl (Narcan) 0.02 mg IV Q1M PRN PRN Reason: RR <10 and pt unresponsive Ondansetron HCl (Zofran) 4 mg IV Q4H PRN PRN PRN Reason: Nausea Oxycodone HCl (Oxyir) 5 - 10 mg PO Q4H PRN PRN PRN Reason: Pain Score 4-10/10 Last Admin: 01/06/20 21:16 Dose: 5 mg Documented by: Prochlorperazine Edisylate (Compazine Iv) 10 mg IV Q6H PRN PRN PRN Reason: NAUSEA Senna/Docusate Sodium (Senokot-S, Rema-Colace) 0 tablet PO DAILY PRN PRN Reason: Constipation Last Admin: 01/06/20 21:16 Dose: 2 tablet Documented by: Simethicone (Mylicon) 80 mg PO PCHS PRN PRN Reason: Indigestion/stomach pain Sodium Chloride () 5 - 15 ml IV UD PRN PRN Reason: SALINE FLUSH Last Admin: 01/06/20 18:20 Dose: 10 ml Documented by: Medical Necessity - Tobacco Use Smoking Status: Never smoker Assessment/Plan s/p LTCS PPD # 2 1. routine post care 2. breast feeding- support given 3. rh positive 4. rubella immune htn- nl bps
[2020-01-07] MEDS: 0.9% Saline Lock 10 ML Syringe IV ×2 (12:26→18:30)
[2020-01-07 14:17] VITALS: BP 138/87; PULSE 87; RESP 16; TEMP 37.1
[2020-01-07 14:30] VITALS: BP 139/93; PULSE 88; RESP 16; TEMP 36.8
[2020-01-07] MEDS: Senna/Docusate Sodium 1 Tablet PO (18:29)
[2020-01-07 20:18] VITALS: BP 136/84; PULSE 87; RESP 16; TEMP 37
[2020-01-08 01:51] VITALS: BP 141/83; PULSE 87; RESP 14; TEMP 36.9
[2020-01-08] MEDS: Ibuprofen 600 MG Tablet PO (04:16)
--- NOTE | 2020-01-08 07:09 | PCM.PN.OB ---
Subjective: ; doing well no complaints pain controlled no CP SOB N V ambulating well tolerating po lochia moderate, going well - Physical Exam Vitals/I&O's: Vital Signs Temp Pulse Resp BP Pulse Ox 98.5 F 87 14 141/83 H 96 01/08/20 01:51 01/08/20 01:51 01/08/20 01:51 01/08/20 01:51 01/07/20 09:02 Oxygen Delivery Method Room Air Weight: 207 lb Body Mass Index (BMI) 33.4 Intake and Output for Last 24 Hours 01/06/20 01/07/20 01/08/20 23:59 23:59 23:59 Intake Total 1915.00 / 1915.00 Output Total 2220 / 2220 Balance -305.00 / -305.00 General: Alert, Oriented x3 Microbiology Past 72 Hours 01/05/20 14:49 Mucosa - Nasopharyngeal Coronavirus COVID-19 PCR - Final Current Medications Acetaminophen (Tylenol) 1,000 mg PO Q8H PRN PRN Reason: Pain Score 1-3/10 Bisacodyl (Dulcolax) 10 mg RECTAL UD PRN PRN Reason: If no BM Hydralazine HCl (Apresoline Iv) 10 mg IV X1 PRN PRN Reason: Elevated BP Hydrocortisone (Hytone) 1 applic TOPICAL TID PRN PRN; Protocol PRN Reason: Discomfort Naloxone HCl 4 mg/ Dextrose 504 mls @ 0 mls/hr IV .Q0M PRN; Protocol PRN Reason: Respiratory depression Ibuprofen (Motrin) 600 mg PO Q6H PRN PRN PRN Reason: Pain Score 1-3/10 Last Admin: 01/08/20 04:16 Dose: 600 mg Documented by: Labetalol HCl (Trandate) 20 mg IV X1 PRN PRN Reason: Elevated BP Labetalol HCl (Trandate) 40 mg IV X1 PRN PRN Reason: Elevated BP Labetalol HCl (Trandate) 80 mg IV X1 PRN PRN Reason: Elevated BP Methylergonovine Maleate (Methergine) 0.2 mg IM X1 PRN PRN Reason: Uterine Atony Last Admin: 01/05/20 18:25 Dose: 0.2 mg Documented by: Naloxone HCl (Narcan) 0.02 mg IV Q1M PRN PRN Reason: RR <10 and pt unresponsive Ondansetron HCl (Zofran) 4 mg IV Q4H PRN PRN PRN Reason: Nausea Oxycodone HCl (Oxyir) 5 - 10 mg PO Q4H PRN PRN PRN Reason: Pain Score 4-10/10 Last Admin: 01/06/20 21:16 Dose: 5 mg Documented by: Prochlorperazine Edisylate (Compazine Iv) 10 mg IV Q6H PRN PRN PRN Reason: NAUSEA Senna/Docusate Sodium (Senokot-S, Rema-Colace) 0 tablet PO DAILY PRN PRN Reason: Constipation Last Admin: 01/07/20 18:29 Dose: 2 tablet Documented by: Simethicone (Mylicon) 80 mg PO PCHS PRN PRN Reason: Indigestion/stomach pain Last Admin: 01/07/20 19:11 Dose: 80 mg Documented by: Sodium Chloride () 5 - 15 ml IV UD PRN PRN Reason: SALINE FLUSH Last Admin: 01/07/20 18:30 Dose: 10 ml Documented by: Medical Necessity - Tobacco Use Smoking Status: Never smoker Assessment/Plan s/p LTCS PPD # 3 1. routine post care 2. breast feeding- support given 3. rh positive 4. rubella immune htn- nl to mildly elevated bps, no meds fu in office
[2020-01-08 08:30] VITALS: BP 140/86; PULSE 77; RESP 18; TEMP 36.7
--- NOTE | 2020-01-18 14:31 | PCM.DC.SUM ---
Discharge Date and Diagnosis Date of Admission: 01/05/20 Date of Discharge: 01/08/20 Hospital Course and Treatment Consultations 01/05/20 14:23 Consult: Anesthesia Routine Comment: Reason For Exam: Labor Operations: - - ltcs Summary of Care Provided: The patient is a 29 year old F patient underwent a section and had a routine recovery with a return of bowel and bladder function, was ambulating, voiding, and tolerating po, and was stable for discharge to home on POD 3. - Physical Exam Vitals/I&O's: Vital Signs Temp Pulse Resp BP Pulse Ox 98.0 F 77 18 140/86 H 96 01/08/20 08:30 01/08/20 08:30 01/08/20 08:30 01/08/20 08:30 01/07/20 09:02 Oxygen Delivery Method Room Air Weight: 207 lb Body Mass Index (BMI) 33.4 Discharge Diet: No Restrictions Discharge Activity: May not drive while taking narcotic pain medications., May Shower, May Take a Tub Bath May resume sexual activity in: 4-6 weeks Additional Activity Instructions:: Nothing in the vagina for 4-6 weeks. You may return to work/school in 6 weeks. Call your doctor if your incision/area has: Continuous Slow Oozing, Sudden Increased Bleeding, Increased Pain/ Swelling, Increased Redness, Foul Smelling Discharge Call your doctor if you observe: Inability to urinate, Inability to have a bowel movement, Using more than one pad per hour Home Medications: Medications to take at Discharge Docusate Sodium [Colace] 100 mg PO BID PRN PRN #60 cap 01/05/20 Ferrous Sulfate [Iron] 325 mg PO DAILY 01/05/20 Vits [Prenatabs FA] 1 tab PO DAILY 01/05/20 Following Prescrptions Were Given to Patient: Docusate Sodium [Colace] 100 mg PO BID PRN PRN #60 cap PRN Reason: Constipation Transmission Status: Received by [id number] Primary Care Physician: Jeannine Mcdowell PA [Primary Care Provider] - Please Follow Up With: Jose Prado MD - [phone] When: Call to make an appointment for an incision check in 2 weeks. Medical Necessity - Tobacco Use Smoking Status: Never smoker Meaningful Use Info Meaningful Use Diagnoses (Choose all that apply): None applicable
== END 2020-01-08 12:55 | disposition home or self-care (01) | DRG 787 ==
PROVIDERS: Obstetrics & Gynecology; Admitting Provider Obstetrics & Gynecology; PCP Physician Assistant; Visit Provider Obstetrics & Gynecology
DX: O76 Abnormality in fetal heart rate and rhythm complicating labor and delivery (principal); O36.0930 Maternal care for other rhesus isoimmunization, third trimester, not applicable or unspecified; Z3A.37 37 weeks gestation of pregnancy; O13.4 Gestational [pregnancy-induced] hypertension without significant proteinuria, complicating childbirth; Z37.0 Single live birth
CPT/HCPCS: 59025; 59050; 82565; 82570; 84156; 84450; 84460; 84550; 85025; 85027; 85461; 85610; 85730; 86850; 86870; 86900; 86901; 87635; 88307; 99218; G2023; J7120; A4216; G0378; J2405; U0004

== ENCOUNTER → 2020-02-14 | Outpatient (CLI) | payer OTHER, SELFPAY ==
[2020-02-21 20:33] LABS: HPV Reflexed? NOT INDICATED
== END | disposition home or self-care (01) ==
LOC: LABSPEC 02-15 09:08
PROVIDERS: PCP Physician Assistant; Visit Provider Obstetrics & Gynecology
DX: Z12.4 Encounter for screening for malignant neoplasm of cervix (principal)
CPT/HCPCS: 88175; G0145

== ENCOUNTER 2025-03-07 07:05 | Day surgery (SDC) | payer SELFPAY ==
[2025-03-07] VITALS (7 sets, daily range): BP systolic 128–136; BP diastolic 81–91; PULSE 95–101; RESP 16–18; TEMP 36.6–36.9; O2SAT 96–98; BMI 34.4
--- OUTSIDE RECORDS SUMMARY | 2025-03-07 07:11 | XMS RPT_ITS | CCD ---
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 Unavailable Un available Graciela Marie Unavailable Unavailable Sugey Albright Unavailable Unavailabl e Quirino German Primary Care Provider Quirino German Referring Provider [phone] Bambi RALPH, Dr. Alden Rendon Attending Provider OLIVIA MCDOWELLISSA J Admitting Unavailable MCDOWELL, QUIRINO J Attending Unavailable MCDOWELL, QUIRINO J Consulting Unavailable MCDOWELL, QUIRINO J Primary Care Unavailable PROVIDER, UNKNOWN Consulting Unavailable MCDOWELL, QUIRINO J Admitting Unavailable MCDOWELL, QUIRINO J Attending Unavailable MCDOWELL, QUIRINO J Consulting Unavailable MCDOWELL, QUIRINO J Primary Care Unavailable PROVIDER, UNKNOWN Consulting Unavailable Federico'BALES, BISI AUTO SERVICE DISPATCHER Admitting Unavailable MCDOWELL, QUIRINO J Consulting Unavailable Federico'BALES BISI AUTO SERVICE DISPATCHER Attending Unavailable Federico'NII BISI AUTO SERVICE DISPATCHER Primary Care Unavailable PROVIDER, UNKNOWN Consulting Unavailable Quirino German Referring Unavailable Quirino German Primary Care Unavailable Alden Lacy Attending Unavailable Quirino German Primary Care Unavailable Alden Lacy Attending Unavailable Medications Current Medications Medication Drug Class(es) Dates Sig (Normalized) Sig (Original) omeprazole 40 mg delayed release oral capsule (16 sources) Proton Pump Inhibitor Start: 01-12-2025 omeprazole 40 mg capsule,delayed release ; 1 (one) capsule 30-60 minutes before first meal of day for 0 days Quantity: 30 {Capsule} Refills: 1 Ordered: 12-Jan-2025 KYARA Mcdowell Start: 12-Jan-2025 Comments: New dose Start: 01-04-2025 omeprazole 20 mg capsule,delayed release ; 1 (one) capsule 30-60 minutes before first meal of day for 0 days Quantity: 30 {Capsule} Refills: 1 Ordered: 04-Jan-2025 KYARA Mcdowell Start: 04-Jan-2025 Start: 12-21-2023 omeprazole 20 mg capsule,delayed release ; 1 (one) capsule 30-60 minutes before first meal of day for 0 days Quantity: 30 {Capsule} Refills: 1 Ordered: 21-Dec-2023 ELI Cardoza Start: 21-Dec-2023 Start: 06-25-2023 End: 09-15-2023 omeprazole 20 mg capsule,del ayed release ; 1 (one) capsule 30- 60 minutes before first meal of day for 0 days Quantity: 14 {Capsule} Refills: 0 Ordered: 15-Sep-2023 ELI Cardoza Start: 25-Jun-2023 End: 15-Sep-2023 Status: Inactive Comment on above: New dose Omeprazole 40 mg capsule,delayed release(DR/EC) (1 source) Start: 02-06-2025 take 1 capsule by mouth once daily in the morning Omeprazole 40 mg capsule,delayed release(DR/EC) Active 40 mg PO EVERY MORNING February 06, 2025 12:00am Completed/Discontinued Medications Medication Drug Class(es) Dates Sig (Normalized) Sig (Original) acyclovir 400 mg oral tablet (10 sources) Herpesvirus Nucleoside Analog DNA Polymerase Inhibitor, Herpes Simplex Virus Nucleoside Analog DNA Polymerase Inhibitor, Herpes Zoster Virus Nucleoside Analog DNA Polymerase Inhibitor Start: 07-26-2024 End: 08-05-2024 acyclovir 400 mg tablet ; 1 (one) Tablet three times daily for 10 days Quantity: 30 {Tablet} Refills: 0 Ordered: 26-Jul-2024 KYARA Caballero Start: 26-Jul-2024 End: 05-Aug-2024 Status: Inactive docusate sodium 100 mg oral capsule (1 source) Start: 01-05-2020 End: 08-20-2023 take 1 capsule by mouth twice daily as needed for constipation Docusate Sodium 100 MG capsule Discontinued 100 mg PO TWICE DAILY NEEDED as needed for Constipation 60 1 January 05, 2020 12:00am August 20, 2023 9:12am ferrous sulfate 325 mg oral tablet (1 source) Start: 01-05-2020 End: 08-20-2023 take 1 tablet by mouth once daily Ferrous Sulfate 325 MG tablet Discontinued 325 mg PO DAILY January 05, 2020 12:00am August 20, 2023 9:12am anemia fluconazole 150 mg oral tablet (10 sources) Azole Antifungal Start: 07-26-2024 End: 08-18-2024 fluconazole 150 mg tablet ; 1 (one) tablet one time dose for 0 days Quantity: 1 {Tablet} Refills: 0 Ordered: 18-Aug-2024 JAY Gallo Start: 26-Jul-2024 End: 18-Aug-2024 Status: Inactive oxyCODONE hydrochloride 5 mg oral tablet (1 source) Opioid Agonist Start: 01-05-2020 End: 01-12-2020 take 1 tablet by mouth every six hours as needed for pain Oxycodone 5 MG tablet Discontinued 5 mg PO EVERY 6 HOURS NEEDED as needed for Pain Score 6-10/10 20 7 0 January 05, 2020 January 11, 2020 12:00am January 12, 2020 12:02am Other acute postprocedural pain Vit,Zzls38-Uulw-Lxkys 1 TABLET tablet (1 source) Start: 01-05-2020 End: 08-20-2023 take 1 tablet by mouth once daily Vit,Zrnf90-Nvws-Eci ic 1 TABLET tablet Discontinued 1 {tbl} PO DAILY January 05, 2020 12:00am August 20, 2023 9:12am sulfamethoxazole 800 mg / trimethoprim 160 mg oral tablet (14 sources) Dihydrofolate Reductase Inhibitor Antibacterial, Sulfonamide Antimicrobial Start: 2023 End: 09-27-2023 Bactrim DS 800 mg-160 mg tablet ; 1 (one) tablet two times daily for 5 days Quantity: 10 {Tablet} Refills: 0 Ordered: 22-Sep-2023 KYARA Caballero Start: 22-Sep-2023 End: 27-Sep-2023 Status: Inactive Problems Active Problems Problem Classification Problem Date Documented Da te Episodic/Chronic Abdominal pain (16 sources) Vaginal pain; Translations: [Pelvic and perineal pain] 08-18-2024 Episodic Anxiety disorders (20 sources) Generalized anxiety disorder; Translations: [Generalized anxiety disorder] 06-25-2023 Chronic Diseases of mouth; excluding dental (20 sources) Ulcer of mouth; Translations: [Other forms of stomatitis] 07-26-2024 Episodic Esophageal disorders (20 sources) Gastroesophageal reflux disease; Translations: [Gastro-esophageal reflux disease without esophagitis] Onset: 5 12-21-2023 Chronic Genitourinary symptoms and ill-defined conditions (20 sources) Urinary symptoms ; Translations: [Unspecified symptoms and signs involving the genitourinary system] 09-15-2023 Episodic Heart valve disorders (14 sources) Heart murmur; Translations: [Cardiac murmur, unspecified] 01-04-2025 Episodic Immunizations and screening for infectious disease (20 sources) Requires diphtheria, tetanus and pertussis vaccination; Translations: [Encounter for immunization] 03-18-2017 Episodic Menstrual disorders (20 sources) Irregular periods; Translations: [Irregular menstruation, unspecified] Onset: 5 08-18-2024 Chronic Mood disorders (1 source) Depressive disorder; Translations: [Depression] 02-06-2025 Chronic Other gastrointestinal disorders (1 source) Dysphagia; Translations: [Dysphagia, unspecified] 02-06-2025 Episodic Other skin disorders (20 sources) Loss of hair; Translations: [Nonscarring hair loss, unspecified] 06-25-2023 Episodic Other upper respiratory disease (20 sources) Feeling of lump in throat; Translations: [Other symptoms involving head and neck] 07-09-2023 Episodic Thyroid disorders (20 sources) Goiter; Translations: [Nontoxic goiter, unspecified] 07-09-2023 Chronic Unclassified (16 sources) Well adult female - The patient feels well with no complaints, has good energy level and is sleeping well. The first day of the last menstrual period was : (02/25/2017 regular). The patient has a balanced diet and takes supplemental vitamins. The patient exercises none (active). The patient sleeps 7 hours per night. Note for Well adult female: Planning to start having children soon. 03-11-2017 Unclassified (10 sources) Number of Children 12-17-2023 Comment on above: 1. Unclassified (2 sources) Unspecified Diagnosis 08-18-2024 Unclassified (5 sources) Follow up for chronic condition - The patient is here for follow-up of GERD. The patient always takes the prescribed medications. 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 Note for Chronic condition follow-up: Symptoms are getting worse, has symptoms daily for the past week.Started ASH end of November and has since started her period (first in a long time) and improved hair growth. Within the past week has had heartburn daily - it did increase though when she first started ASH end of November. Had been taking it before bed and switched to taking it in the morning just recently.Has made lifestyle changes --- has reduced spicy foods, late night eating, and reclining. Drinks 1 cup of coffee in the morning.TUMs help but don't take it away completely.Feels chest/epigastric indigestion/burning. 01-04-2025 Unclassified (3 sources) Follow up for chronic condition - The patient is here for follow-up of GERD. The patient always takes the prescribed medications. No side effects noted. The patient engages in regular exercise program 1-3 times per week. The patient's out of office blood pressure checks occur rarely. Note for Chronic condition follow-up: Patient states that she is still getting pain in her chest, burning type of pain, even with the omeprazole. States that the omeprazole has helped though a little bit. 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 Feels like a squeeze of her chest - does feel better today.Pt does feel like the medication is helping especially since being on the higher dose -- it is much less severe when she gets the pain and drinking water helps - which it hadn't been before. Currently her discomfort doesn't seem to be related to food as it can be hours after she eats. Typically it is when she lies down, during or night or right when she wakes up. Feels like a period cramp/burning cramp in her chest. Drinks water and that resolves it. When drinks something she can feel it in the esophagus - not that it is getting stuck but that it settles things down -- like it is pushing food down into the stomach. When has an attack still she will take TUMS at times which are effective.BMs are normal - maybe little more urgent than normal since starting PPI.No abdominal pain. 02-02-2025 Past or Other Problems Problem Classification Problem Date Documented Date Episodic/Chronic Other screening for suspected conditions (not mental disorders or infectious disease) (20 sources) Patient encounter status; Translations: [Encounter for screening for diseases of the blood and blood-forming organs and certain disorders involving the immune mechanism] Onset: 10-20-2024 11-08-2021 Episodic Unclassified (16 sources) throat sensation - Pt woke up last week with a sensation that something was in her throat. It has been intermittent. Feels it only with swallowing. Not getting worse. After she eats she feels like it is sitting in the chest rather than processing it.No difficulty swallowing.Did have some heartburn 2 nights ago - woke up in the night with it. Last night did feel like it was a little harder to breathe - took an allergy pill which did help.Had some PND earlier this month but not since. No recent cold symptoms.No other symptoms. 06-25-2023 Unclassified (16 sources) Well adult female - The patient feels well with minor complaints (is having hair loss, pt had covid in Jul 2021 but has noticed thinning in the front since her son was born), has good energy level and is sleeping well. The first day of the last menstrual period was : (11/07/2021). The patient is not using any method of contraception at this time. The patient has a balanced diet and takes no supplemental vitamins & iron. The patient does not exercise. The patient sleeps 7 hours per night. 11-08-2021 Unclassified (15 sources) UTI - Symptoms include dysuria and urinary frequency, but do not include urinary urgency, hematuria, flank pain, abdominal pain or back pain. Onset was gradual 1 week(s) ago. There is no known event that preceded symptom onset. The symptoms occur constantly. The patient describes this as mild and unchanged. Associated symptoms do not include fever, chills, nausea or vaginal discharge (denies any vaginal itching or burning). Risk factors do not include current . Note for UTI: Patient does report some spotting today, but not blood in her urine. 09-15-2023 Unclassified (1 source) feels like something stuck in throat 12-21-2023 Unclassified (1 source) Emotional state finding 12-21-2023 Unclassified (12 sources) throat feels tight - Patient states she had this same thing in June 2023 and was seen by you. Patient has been dealing with acid reflux and feeling of something stuck in throat x 2 weeks ( is just using tums for acid reflux). Did have a bad episode in the middle of the night and it did help but they don't usually help for very long.Says it feels like she could cough something up, but can't.She had sharp pain in between her breasts, and has a feeling of something stuck in her throat. Today she is feeling a little better.No difficulty swallowing, but sometimes feels like something gets caught.Had thyroid US in the fall which showed cyst - general surgeon didn't feel aspiration was necessary.Does close at work and eats after she gets home at 9pm - 2 nights a week. 12-21-2023 Unclassified (10 sources) Mouth pain - Symptoms include sore tongue, mouth lesions and dental pain in a single tooth (went to dentist and need fillings fixed - she is scheduled for this in August), while symptoms do not include bleeding gums, purulent discharge or facial swelling. Symptoms are located in the tongue and gums. There is no radiation. The patient describes the pain as sharp (when she touches mouth or eats/drinks). Onset was sudden 3 day(s) ago (Started with pain on Thursday and the lesions developed after that). There is no known event that preceded symptom onset. The symptoms occur constantly. The patient describes this as moderate in severity and unchanged. Symptoms are relieved by salt water rinse, cold compresses and non-opioid analgesics. Associated symptoms include headache and swollen glands, while associated symptoms do not include fever or sore throat. Pertinent medical history includes aphthous ulcers (Patient reports getting these occasionally, but these feel different.), while pertinent medical history does not include herpes simplex (Patient reports that her gets cold sores, but she has never had any herself), tooth extraction or poor dental hygiene. 07-26-2024 Unclassified (1 source) vaginal pain - Pt states that she started having vaginal pressure type pain, sharp pain when she she sits down ever since she finished the anti fungal from previous visit. Pt states no discharge. Pt states that last week she had some bleeding and thought she was starting her period but it stopped after 1 day. Period has been irregular for the past couple of months - heavy vs absent. Does think there is some improvement after urinates but then 5 minutes later it is back and feels like she has to urinate again. No burning or itching. Urinary frequency/urgency. Was away for [place] and got really sick - had it prior to that and then didn't notice it while sick but then had it again after sickness was over. 08-18-2024 Unclassified (8 sources) vaginal pain - Pt states that she started having vaginal pressure type pain, sharp pain when she she sits down ever since she finished the anti fungal from previous visit. Pt states no discharge. Pt states that last week she had some bleeding and thought she was starting her period but it stopped after 1 day. Period has been irregular for the past couple of months - heavy vs absent. Does think there is some improvement after urinates but then 5 minutes later it is back and feels like she has to urinate again. No burning or itching. Urinary frequency/urgency. Denies constipation.Was away for [place] and got really sick - had it prior to that and then didn't notice it while sick but then had it again after sickness was over. 08-18-2024 NEGATED: Highlighted row has been ruled out!Unclassified (6 sources) No Known / History Onset: 03-11-2017 03-11-2017 Results Test Name Value Interpretation Reference Range Facility CHEST 2 [facility] 02-07-2025 CHEST 2 VIEWS [place] [address] Patient: BARB YBARRA Phone#: : 1990 Age: 34 Gender: F Pt. Type: Out Account: [id number] Location: Ordering: [facility] Exam Date: 02/07/2025/9:10 Family Phys: Charge Code: [id number] Physician: [place] Order #: [id number] Dose#: PROCEDURE: X-RAY CHEST 2 VIEWS COMPARISON: None. INDICATIONS: Gastroesophageal reflux disease. FINDINGS: LUNGS: Normal. No significant pulmonary parenchymal abnormalities. VASCULATURE: Normal. Unremarkable pulmonary vasculature. CARDIAC: Normal. No cardiac silhouette abnormality or cardiomegaly. MEDIASTINUM: Normal. No visible mass or adenopathy. PLEURA: Normal. No effusion or pleural thickening. BONES: Normal. No fracture or visible bony lesion. OTHER: Negative. CONCLUSION: No acute disease. Dictated by: Karen Sidhu MD on 02/07/2025 at 11:51 Approved by: Karen Sidhu MD on 02/07/2025 at 11:[address] [facility] Surgery Visit Reporton 02-06 Surgery Visit Report [facility] [address] [place] [address]. [address] [place] [address] OFFICE VISIT Date of Service: 02/06/25 MR#: [id number] Acct: [id number] Name: BARB YBARRA VALENTIN Rep #: [id number] : 1990 Provider: Dr. Alden gerard MD Age/Sex: 34/F Location: [facility] Status: Signed Intake Vital Signs 08/20/23 08:09 02/06/25 09:08 Height 5 ft 10 in 5 ft 6 in Weight: 220 lb BMI 35.5 BP 136/88 H Blood Pressure Location Rt brachial Position Sitting Respiration 16 Intake Visit Reasons: GERD- SELF PAY Chief Complaint: gerd Career Services Assistant Required: No Is patient in pain?: No Allergies No Known Allergies Allergy (Verified 02/06/25 09:09) Medications ???Medication ???Instructions ???Recorded ???Confirmed ???Type omeprazole 40 mg capsule,delayed 40 mg PO QAM 02/06/25 02/06/25 His tory release Have you fallen in the past year?: No PFSH Medical History (Updated 02/06/25 @ 09:08 by Dipti Meade) Dysphagia Heart murmur Globus sensation Anxiety Depression GERD (gastroesophageal reflux disease) Surgical History S/P section Family History Mother Diabetes Skin cancer (melanoma) Breast cancer Aunt Breast cancer Grandmother Breast cancer Social History (Updated 02/06/25 @ 09:08 by Dipti Meade) Smoking Status: Never smoker alcohol intake: current HPI HPI HPI: The patient is a 34-year-old female who is being seen today for to schedule an EGD. It sounds as though she has been having some ongoing issues with gastroesophageal reflux. She initially saw her PCP in the past and was placed on omeprazole which seem to control her symptoms. She stopped the omeprazole for a period of time and then her symptoms seem to return. She is back on omeprazole however this is only marginally helping her symptoms. She states that she has heartburn and reflux now only at night but also at times during the day. She was recommended by her PCP to have an EGD performed. ROS General General: No weight change, appetite, fatigue, colon cancer, breast cancer or weakness HEENT HEENT: Yes difficulty swallowing; No eye injury, eye surgery, swollen glands or hoarseness Endo Endocrine: No thyroid disease, diabetes mellitus, thyroid cancer, Hair loss, heat intolerance or cold intolerance Skin Skin: No rash or changing moles Breast Breast: No left breast lump, right breast lump, nipple discharge, breast pain, abnormal mammogram, abnormal US or breast enlargement Musc Musculoskeletal: Yes back problems; No arthritis, rheumatoid arthritis, gout or joint pain Cardio Cardiovascular: Yes murmur; No pacemaker, heart disease, atrial fibrillation, high blood pressure, heart attack, heart stent, palpitations, shortness of breath with exertion or chest pain Psych Psychiatric: Yes depression and anxiety; No hearing voices Resp Respiratory: Yes shortness of breath, No sleep apnea, No cough, No COPD, No asthma, No emphysema and No wheezing Gastro Gastrointestinal: No abdominal pain, No nausea or vomiting, No diarrhea, No constipation, No blood in stool, Yes acid reflux, No hemorrhoids, No ulcers, No gallbladder problem and No black,tarry stools [place] Hematologic: No blood thinners, No blood disorders, No bleeding, No anemia and No blood clots Neuro Neurologic: No system reviewed and no additional complaints, except as documented, No as per HPI, No abnormal gait, No abnormal hearing, No abnormal movements, No abnormal speech, No behavioral changes, No burning sensations, No confusion, No convulsions, No disequilibrium, No dizziness, No localized weakness, No frequent falls, No headache(s), No lack of coordination, No loss of vision, No memory loss, Yes numbness, No other visual disturbances, No radicular pain, No restless legs, No sensory deficit, No syncope, Yes tingling, No tremor(s), No weakness and No other Exam Const General: cooperative, healthy appearing and comfortable [facility] Head: normal to inspection Eyes General: appearance normal, both eyes and all related structures Assessment and Plan Assessment and Plan (1) GERD (gastroesophageal reflux disease): Status: Acute Plan: The patient is a 34-year-old female with ongoing issues with gastroesophageal reflux disease and heartburn. This seems to be now somewhat refractory to PPI medications. She was advised to have an EGD. She presented today to discuss the procedure. We discussed the details of the planned procedure including risks benefits and alternatives. She wishes to proceed. This will be scheduled in a timely manner. Coding Level of Care Code Off vis,new,level 3 Diagnoses GERD (gastroesophageal reflux disease) K21.9 (more content not included)... Normal [facility] 08-25-2024 [place] [address] Patient: BARB YBARRA Phone#: : 1990 Age: 33 Gender: F Pt. Type: Out Account: [id number] Location: Ordering: [facility] Exam Date: 08/25/2024/8:58 Family Phys: Charge Code: [id number] Physician: [place] Order #: [id number] Dose#: PROCEDURE: PELVIC ULTRASOUND, TRANSABDOMINAL COMPARISON: None. INDICATIONS: Irregular menses. TECHNIQUE: Pelvic ultrasound was performed in the usual manner. FINDINGS: UTERUS: Size is 9.3 x 4.6 x 3.5 cm with unremarkable appearance. Endometrial thickness is 7.3 mm. ADNEXAE: Normal bilateral appearance with no significant masses. Each ovary is normal in size for a patient of this age. CUL-DE-SAC: Normal. No fluid or mass. OTHER: Negative. CONCLUSION: 1. Unremarkable pelvic ultrasound. Dictated by: Mary Ann Miles MD on 08/25/2024 at 11:43 Approved by: Mary Ann Miles MD on 08/25/2024 at 11:[address] [facility] BV/VAGINITIS PANEL DNA PROBE on 08-19-2024 DAY: Not detected Normal NOT DETECTED [facility] Comment on above: Performed By: #### [id number] #### [facility] [address], [address] [place] [address] Network Administrator: Bo Manuel MD GARDNERELLA: Not detected Normal NOT DETECTED [facility] Comment on above: Performed By: #### [id number] #### [facility] [address], [address] [place] [address] Network Administrator: Bo Manuel MD TRICHOMONAS: Not detected Normal NOT DETECTED [facility] Comment on above: Performed By: #### [id number] #### [facility] [address], [address] [place] [address] Network Administrator: Bo Manuel MD Laboratory - Chemistry and C hemistry - challengeon 08-18-2024 Bilirubin Ql (U) Negative Normal [facility], [facility], [facility]. Ketones Ql (U) Negative Normal [facility], [facility].; [facility], [employer]. pH (U) 7.0 [pH] Normal [facility], [facility].; [facility], Inc[employer] Specific gravity (U) [Rel density] 1.010 Normal [facility], [facility].; [employer], [employer]. Urobilinogen Qn (U) 0.2 mg/dL Normal [facility], [facility].; [employer]. Laboratory - Hematology and Cell countson 08-18-2024 Hemoglobin Ql (U) trace, hemolyzed Abnormal [facility] Center[facility].; [facility]. Laboratory - Specimen inform ationon 08-18-2024 Appearance (U) clear Normal [facility].; [employer]. Color (U) yellow Normal [employer].; [employer]. Laboratory - Urinalysison Glucose Test strip (U) [Mass/Vol] Negative Normal [facility].; [employer]. Leukocyte esterase Test strip Ql (U) Negative Normal [facility].; [employer]. Nitrite Ql (U) Negative Normal [facility].; [employer]. Protein Ql (U) Negative Normal [facility].; [employer]. No Panel Informationon 08-18 DAY: Not detected Normal [employer].; [employer]. GARDNERELLA: Not detected Normal [facility].; [employer]. TRICHOMONAS: Not detected Normal [facility].; [employer]. HERPES SIMPLEX VIRUS CULTURE W/RFL TO TYPINGon 07-29-2024 HERPES SIMPLEX VIRUS CULTURE W/RFL TO TYPING SEE NOTE Normal [facility] Comment on above: Result Comment: HERPES SIMPLEX VIRUS CULTURE W/RFL TO TYPING Micro Number: [id number] Test Status: Final Specimen Source: Not given Specimen Quality: Adequate HSV Culture: Not Isolated Performed By: #### 2 [id number] #### [facility] [address], [address] [place] [id number] Network Administrator: Bo Manuel MD No Panel Informationon 07-26 HERPES SIMPLEX VIRUS CULTURE W/RFL TO TYPING SEE NOTE Normal [employer].; [employer]. CULTURE, URINE, ROUTINEon CULTURE, URINE, ROUTINE SEE NOTE Abnormal [facility] Comment on above: Result Comment: CULTURE, URINE, ROUTINE Micro Number: [id number] Test Status: Final Specimen Source: Urine Specimen Quality: Adequate Result: Greater than 100,000 CFU/mL of Klebsiella aerogenes (Enterobacter) Greater than 100,000 CFU/mL of Escherichia coli K. aerogenes E.coli INT SONIYA INT SONIYA AMOX/CLAVULANATE R >=32 S <=2 AMPICILLIN * S <=2 AMP/SULBACTAM * S <=2 CEFAZOLIN R >=64 1 NR <=4 2 CEFEPIME S <=1 S <=1 CEFTAZIDIME S <=1 S <=1 CEFTRIAXONE S <=1 S <=1 CIPROFLOXACIN S <=0.25 S <=0.25 GENTAMICIN S <=1 S <=1 IMIPENEM I 2 S <=0.25 LEVOFLOXACIN S <=0.12 S <=0.12 NITROFURANTOIN I 64 S <=16 PIP/TAZOBACTAM S <=4 S <=4 TOBRAMYCIN S <=1 S <=1 TRIMETHOPRIM/SULFA S <=20 S <=20 S=Susceptible I=Intermediate R=Resistant * = Not Tested NR = Not Reported NN = See Therapy Comments THERAPY COMMENTS Note 1: For uncomplicated UTI caused by E. coli, K. pneumoniae or P. mirabilis: Cefazolin is susceptible if SONIYA <32 mcg/mL and predicts susceptible to the oral agents cefaclor, cefdinir, cefpodoxime, cefprozil, cefuroxime, cephalexin and loracarbef. Note 2: For infections other than uncomplicated UTI caused by E. coli, K. pneumoniae or P. mirabilis: Cefazolin is resistant if SONIYA > or = 8 mcg/mL. (Distinguishing susceptible versus intermediate for isolates with SONIYA < or = 4 mcg/mL requires additional testing.) Performed By: #### 3 [id number] #### [facility] [address], [address] [place] [address] Network Administrator: Bo Manuel MD No Panel Informationon 09-16 CULTURE, URINE, ROUTINE SEE NOTE Abnormal [facility] Laboratory - Chemistry and C hemistry - challengeon 09-15-2023 Bilirubin Ql (U) Negative Normal [facility].; [facility] Ketones Ql (U) Negative Normal [facility].; [place] [facility] + [facility] Center[facility]. pH (U) 7.0 [pH] Normal [facility].; [place] [facility] + [facility] CenterSkyline International Development. Specific gravity (U) [Rel density] 1.015 Normal [facility] Hospital[facility].; [facility] HospitalAuto[facility] Urobilinogen Qn (U) 0.2 mg/dL Normal [facility].; [place] [facility] + [facility] CenterAuto[facility]. Laboratory - Hematology and Cell countson 09-15-2023 Hemoglobin Ql (U) moderate Abnormal [facility]; [facility] Laboratory - Specimen inform ationon 09-15-2023 Appearance (U) clear Normal [facility].; [place] [facility] + [facility] CenterSk[facility] Development Color (U) yellow Normal [facility] Hospital[facility]; [facility]. Laboratory - Urinalysison Glucose Test strip (U) [Mass/Vol] Negative Normal [facility] Hospital[facility].; [place] [facility] + [facility] CenterAuto[facility]. Leukocyte esterase Test strip Ql (U) trace Normal [facility].; [place] [facility] + [facility] CenterSk[facility]. Nitrite Ql (U) Negative Normal [facility] Hospital[facility].; [place] [facility] + [facility] CenterSk[facility]. Protein Ql (U) Negative Normal [facility] Hospital[facility].; [facility]. Laboratory - Chemistry and C hemistry - challengeon 06-25-2023 Free T4 [Mass/Vol] 1.3 ng/dL Normal 0.8 - 1.8 ng/dL [facility] Hospital[facility].; [place] [facility] + [facility] CenterAuto[facility]. TSH Qn 0.70 m[IU]/L Normal [facility].; [facility]. Laboratory - Chemistry and C hemistry - challengeon 11-08-2021 Albumin [Mass/Vol] 4.8 g/dL Normal 3.6 - 5.1 g/dL [facility]Auto[facility].; [facility] Albumin/Globulin [Mass ratio] 1.5 {ratio} Normal 1.0 - 2.5 [facility].; [facility], [facility]. ALP [Catalytic activity/Vol] 84 U/L Normal 31 - 125 U/L [facility].; [facility], [facility]. ALT [Catalytic activity/Vol] 35 U/L Abnormal 6 - 29 U/L [facility].; [facility], [facility]. AST [Catalytic activity/Vol] 19 U/L Normal 10 - 30 U/L [facility].; [facility], [facility]. Bilirubin [Mass/Vol] 0.4 mg/dL Normal 0.2 - 1 .2 mg/dL [facility].; [facility], [facility] Calcium [Mass/Vol] 9.7 mg/dL Normal 8.6 - 10. 2 mg/dL [facility]; [facility], [facility]. Chloride [Moles/Vol] 104 mmol/L Normal 98 - 11 0 mmol/L [facility].; [facility], [facility] CO2 [Moles/Vol] 27 mmol/L Normal 20 - 32 mmol/L [facility].; [facility], [facility]. Creatinine [Mass/Vol] 0.69 mg/dL Normal 0.50 - 1.10 mg/dL [facility], [facility].; [facility], [facility]. GFR/1.73 sq M.predicted among blacks MDRD (S/P/Bld) [Vol rate/Area] 134 mL/min/{1.73_m2} Normal [facility], [facility].; [facility], [facility]. Glucose [Mass/Vol] 111 mg/dL Abnormal 65 - 99 mg/dL [facility].; [facility], [facility]. Potassium [Moles/Vol] 4.4 mmol/L Normal 3.5 - 5.3 mmol/L [facility], [facility].; [facility], [facility]. Protein [Mass/Vol] 8.0 g/dL Normal 6.1 - 8.1 g/dL [facility], [facility].; [facility], [facility]. Sodium [Moles/Vol] 141 mmol/L Normal 135 - 146 mmol/L [facility], [facility].; [facility], [facility]. Urea nitrogen [Mass/Vol] 11 mg/dL Normal 7 - 25 mg/dL [facility] HospitalAutoGenomics [facility].; [place] [employer] [facility] Laboratory - Hematology and Cell countson 11-08-2021 Basophils (Bld) [#/Vol] 0.033 10*3/uL Normal 0 - 200 {cells/uL} [facility], [facility].; [facility], [facility] Basophils/100 WBC (Bld) 0.4 % Normal [facility] HospitalAuto[facility].; [facility], [facility] Eosinophils (Bld) [#/Vol] 0.074 10*3/uL Normal 15 - 500 {cells/uL} [facility], [facility].; [place] [facility] + [facility], [facility] Eosinophils/100 WBC (Bld) 0.9 % Normal [facility] HospitalAuto[facility].; [place] [facility] + [facility], [facility] Erythrocyte distribution width (RBC) [Ratio] 14.5 % Normal 11.0 - 15.0 % [facility] HospitalAuto[facility].; [place] [employer], [facility] Hematocrit (Bld) [Volume fraction] 44.4 % Normal 35.0 - 45.0 % [facility] HospitalAuto[facility].; [place] [employer], [facility]. Hemoglobin (Bld) [Mass/Vol] 14.4 g/dL Normal 11.7 - 15.5 g/dL [facility] HospitalAuto[facility].; [place] [facility] + [facility], [facility]. Lymphocytes (Bld) [#/Vol] 2.517 10*3/uL Normal 850 - 3900 {cells/uL} [facility], [facility].; [place] [employer], [facility]. Lymphocytes/100 WBC (Bld) 30.7 % Normal [facility] HospitalAuto[facility].; [place] [employer], [facility]. MCH (RBC) [Entitic mass] 25.0 pg Abnormal 27.0 - 33.0 pg [facility] HospitalAuto[facility].; [employer], [facility]. MCHC (RBC) [Mass/Vol] 32.4 g/dL Normal 32.0 - 36.0 g/dL [facility], [facility].; [place] [employer] MCV (RBC) [Entitic vol] 77.1 fL Abnormal 80.0 - 100.0 fL [facility] HospitalAuto[facility].; [place] [employer], [facility]. Monocytes (Bld) [#/Vol] 0.435 10*3/uL Normal 200 - 950 {cells/uL} [facility]Auto[facility].; [facility] HospitalAuto[facility] Monocytes/100 WBC (Bld) 5.3 % Normal [facility].; [facility], [facility] Neutrophils (Bld) [#/Vol] 5.141 10*3/uL Normal 1500 - 7800 {cells/uL} [facility], [facility].; [facility], [facility]. Neutrophils/100 WBC (Bld) 62.7 % Normal [facility].; [facility] HospitalAuto[facility] Platelet mean volume (Bld) [Entitic vol] 11.7 fL Normal 7.5 - 12.5 fL [facility]; [facility], [facility] Platelets (Bld) [#/Vol] 355 10*3/uL Normal 140 - 400 [facility] HospitalAuto[facility]; [facility], [facility] RBC (Bld) [#/Vol] 5.76 10*6/uL Abnormal 3.80 - 5.1 0 {Million/uL} [facility]Auto[facility].; [facility]Auto[facility] WBC (Bld) [#/Vol] 8.2 10*3/uL Normal 3.8 - 10.8 [facility]Auto[facility].; [facility] HospitalAuto[facility] No Panel Informationon 11-08 BUN/CREATININE RATIO NOT APPLICABLE Normal 6 - 22 [facility]; [facility] eGFR NON-AFR. CITIZEN OF [place] 116 Normal [facility]Auto[facility].; [facility] GLOBULIN 3.2 Normal 1.9 - 3.7 [facility]Auto[facility].; [place] [employer] [facility] IRON, TOTAL 53 ug/dL Normal 40 - 190 ug/dL [facility] HospitalAuto[facility].; [place] [employer] [facility]. TSH W/REFLEX TO FT4 0.94 {mIU/L} Normal [facility]; [facility] Progress Noteon 11-17-2019 Juvenile Probation Officer Authentication Interface Message Text Met with patient. 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 Consent to share information with FTC team, OB and program officer signed. Pt plans to deliver at [facility]. Die Lay Out Worker is not yet decided. male fetus- name is Blair Method of feeding: breast Ultrasound findings today: See report in procedures for details. Reinforced continued OB care with Dr Andrade Normal [facility] Juvenile Probation Officer Authentication Interface Message Text The total patient time of the visit was 30 minutes, of which greater than 50% of the time was spent counseling and coordinating care. Normal [facility] Hepatitis B Surf. Agon 07-14 Hepatitis B Surf. Ag NEGAT Normal Negative [facility] Reference Lab Comment on above: Performed By: #### R UBIGG, HBSAG, AHCV #### [facility] Routine Lab [address] [place] [phone] #### RPR #### [facility]ology [address] [place] [phone] Hepatitis C Ab IAon 07-14-20 19 Hepatitis C Ab IA NEGAT Normal Negative [facility] Reference Lab Comment on above: Performed By: #### R UBIGG, HBSAG, AHCV #### [facility] Routine Lab [address] [phone] #### RPR #### [facility] Immunology [address] [phone] Ron 07-14-2019 Reagin Ab RPR Ql (S) NR Normal Non Reactive [facility] Reference Lab Comment on above: Performed By: #### R UBIGG, HBSAG, AHCV #### [facility] Routine Lab [address] [phone] #### RPR #### [facility] Immunology [address] [place] [phone] Rubella IgG Antibodyon 07-14 Rubella IgG Ab 6.38 Index Value Normal [facility] Reference Lab Comment on above: Performed By: #### R UBIGG, HBSAG, AHCV #### [facility] Routine Lab [address] [place] [phone] #### RPR #### [facility] [address] [place] [phone] Rubella IgG Ab, Qual Positive Abnormal Negative [facility] Reference Lab Comment on above: Performed By: #### R UBIGG, HBSAG, AHCV #### [facility] Routine Lab [address] [place] [phone] #### RPR #### [facility] [address] [place] [phone] Progesteroneon 01-05-2019 Progesterone 0.3 ng/mL Normal [facility] Reference Lab Comment on above: Performed By: #### P ROL, PROG #### [facility] Routine Lab [address] [place] [phone] Prolactinon 01-05-2019 Prolactin 19.1 ng/mL Normal 4.5-26.8 [facility] Reference Lab Comment on above: Performed By: #### P ROL, PROG #### [facility] Routine Lab [address] [place] [phone] Laboratory - Chemistry and C hemistry - challengeon 03-11-2017 TSH Qn 0.57 m[IU]/L Normal 0.34 - 5.60 {uIU/ml} [employer], [employer]. Laboratory - Hematology and Cell countson 03-11-2017 Basophils (Bld) [#/Vol] 0.00 {3/UL} Normal 0.00 - 0.10 {3/UL} [employer], [employer].; [employer], [employer]. Basophils/100 WBC (Bld) 0.3 % Normal 0.0 - 2.0 % [facility].; [employer]. CBC W Auto Differential panel (Bld) CBC Normal [place] [facility] + [facility] CenterAuto[facility].; [place] [facility] + [facility], [facility]. Eosinophils (Bld) [#/Vol] 0.10 {3/UL} Normal 0.00 - 0.50 {3/UL} [facility], [facility].; [place] [employer], [employer]. Eosinophils/100 WBC (Bld) 0.8 % Normal 0.0 - 7.0 % [place] [facility] + [facility] CenterAuto[facility].; [facility]. Erythrocyte distribution width (RBC) [Ratio] 14.1 % Normal 12.0 - 15.6 % [facility].; [place] [employer], [employer]. Hematocrit (Bld) [Volume fraction] 36.0 % Normal 34.0 - 46.0 % [place] [facility] + [facility] CenterAuto[facility].; [place] [employer], [facility]. Hemoglobin (Bld) [Mass/Vol] 12.1 g/dL Normal 12.0 - 16.0 g/dL [place] [facility] + [facility] CenterAuto[facility].; [place] [employer], [facility]. Lymphocytes (Bld) [#/Vol] 3.20 {3/UL} Abnormal 0.80 - 2.80 {3/UL} [facility] [employer], [employer].; [employer], [employer]. Lymphocytes/100 WBC (Bld) 30.1 % Normal 20.0 - 45.0 % [facility].; [employer], [employer]. MCH (RBC) [Entitic mass] 25 pg Abnormal 27 - 33 pg [facility].; [employer], [employer]. MCHC (RBC) [Mass/Vol] 34 {X10_3} Normal 32 - 3 6 {X10_3} [facility].; [employer], [employer]. MCV (RBC) [Entitic vol] 75 fL Abnormal 80 - 99 fL [facility].; [place] [employer], [employer]. Monocytes (Bld) [#/Vol] 0.70 {3/UL} Normal 0.20 - 1.00 {3/UL} [employer], [employer].; [employer], [employer]. Monocytes/100 WBC (Bld) 6.4 % Normal 0.0 - 10.0 % [facility].; [employer]. Morphology Tyson (Bld) [Interp] N/A Normal [facility] [employer].; [facility]. Neutrophils (Bld) [#/Vol] 6.70 {3/UL} Normal 1.50 - 7.10 {3/UL} [facility] [employer].; [employer], [employer]. Neutrophils/100 WBC (Bld) 62.4 % Normal 46.0 - 76.0 % [facility].; [employer], [employer]. Platelet mean volume (Bld) [Entitic vol] 9.3 fL Normal 6.6 - 10.5 fL [facility].; [place] [employer], [employer]. Platelets (Bld) [#/Vol] 272 {3/UL} Normal 150 - 450 {3/UL} [facility].; [employer], [employer]. RBC (Bld) [#/Vol] 4.80 {6/UL} Normal 4.10 - 5.3 0 {6/UL} [employer].; [employer], [employer]. WBC (Bld) [#/Vol] 10.7 {3/UL} Normal 4.5 - 10.8 {3/UL} [employer].; [employer]. Laboratory - Microbiology an d Antimicrobial susceptibilityon 03-11-2017 VZV IgG IA Qn (S) VARICELLA ZOSTER AB (IGG) [QUEST] Normal [employer].; [employer], [employer]. No Panel Informationon 03-11 MANUAL DIFF N/A Normal [employer].; [employer]. PANEL NAME THIN PREP (QU) PAP WITH HPV REFLEX Normal [employer]. PANEL NAME MMR PROFILE Normal [employer].; [employer]. Vital Signs Date Time Vital Sign Value Performing Clinician Facility 02-06-2025 09:08-0400 Body height 167.64 cm Quirino RUIZ Work Phone: [facility] 02-06-2025 09:08-0400 Body mass index (BMI) [Ratio] 35.5 kg/m2 Quirino RUIZ Work Phone: [facility] 02-06-2025 09:08-0400 Body weight 99.79 kg Quirino Mcdowell PA Work Phone: [facility] 02-06-2025 09:08-0400 Diastolic blood pressure 88 mm[Hg] Quirino Mracoser PA Work Phone: [facility] 02-06-2025 09:08-0400 Respiratory rate 16 /min Quirino Marcoser PA Work Phone: [facility] 02-06-2025 09:08-0400 Systolic blood pressure 136 mm[Hg] Quirino Mcdowell PA Work Phone: [facility] 02-02-2025 09:36-0400 Body weight 97.52 kg Sugey Albright [facility] 02-02-2025 09:36-0400 Diastolic blood pressure 77 mm[Hg] Sugey Albright [facility] Comment on above: Patient Position: Sitting; Cuff Location : Left Arm; Cuff Size: Standard 02-02-2025 09:36-0400 Heart rate 79 /min Sugey Albright [facility] Comment on above: Pattern: Regular 02-02-2025 09:36-0400 Inhaled oxygen concentration 21 % Sugey Gallagheretler [facility] Comment on above: Room air 02-02-2025 09:36-0400 SaO2% (BldA) [Mass fraction] 99 % Sugey Albright [facility] [employer] [facility] 02-02-2025 09:36-0400 Systolic blood pressure 108 mm[Hg] Sugey Albright [facility] [employer] Comment on above: Patient Position: Sitting; Cuff Location : Left Arm; Cuff Size: Standard 01-04-2025 09:56-0400 Body height 166.37 cm Carito Banda LPN [facility], [facility]. 01-04-2025 09:56-0400 Body mass index (BMI) [Ratio] 35.07 kg/m2 Carito Ramirez Veronika [facility].; [facility]. 01-04-2025 09:56-0400 Body surface area Derived from formula 2.05 m2 Carito Cravenlabach [facility].; [place] [facility] + [facility]. 01-04-2025 09:56-0400 Body weight 97.07 kg Carito Ramirez Veronika [facility].; [place] [facility] + Isabel [facility]. 01-04-2025 09:56-0400 Diastolic blood pressure 83 mm[Hg] Carito Cravenlabach [facility].; [employer]. Comment on above: Patient Position: Sitting; Cuff Location : Right Arm; Cuff Size: Standard 01-04-2025 09:56-0400 Heart rate 83 /min Carito Ramirez Veronika [facility].; [employer]. Comment on above: Pattern: Regular 01-04-2025 09:56-0400 Systolic blood pressure 131 mm[Hg] Carito Cravenlabach [facility].; [employer]. Comment on above: Patient Position: Sitting; Cuff Location : Right Arm; Cuff Size: Standard 08-18-2024 08:36-0500 Body height 166.37 cm [facility], [facility].; [place] [facility] + Isabel [facility]. 08-18-2024 08:36-0500 Body mass index (BMI) [Ratio] 34.41 kg/m2 [facility], [facility].; [facility]. 08-18-2024 08:36-0500 Body surface area Derived from formula 2.03 m2 [facility], [facility].; [place] [facility] + Isabel [facility], [facility]. 08-18-2024 08:36-0500 Body temperature 98.1 [degF] [facility].; [employer]. Comment on above: Method: Tympanic 08-18-2024 08:36-0500 Body weight 95.26 kg Graciela Gallo [facility] [employer] 08-18-2024 08:36-0500 Diastolic blood pressure 75 mm[Hg] Graciela Gallo [facility], [facility].; [employer], [employer]. Comment on above: Patient Position: Sitting; Cuff Location : Left Arm; Cuff Size: Standard 08-18-2024 08:36-0500 Heart rate 84 /min [facility], [facility].; [employer] Comment on above: Pattern: Regular 08-18-2024 08:36-0500 Systolic blood pressure 135 mm[Hg] Graciela QuanH[facility] Hospital[facility].; [employer], [employer]. Comment on above: Patient Position: Sitting; Cuff Location : Left Arm; Cuff Size: Standard 07-26-2024 08:56-0500 Body height 166.37 cm Tamanna Cardoza MA [facility] [employer] 07-26-2024 08:56-0500 Body mass index (BMI) [Ratio] 34.48 kg/m2 Tamanna Cardoza MA [facility].; [employer] 07-26-2024 08:56-0500 Body surface area Derived from formula 2.03 m2 Tamanna Cardoza MA [facility], [facility].; [employer] 07-26-2024 08:56-0500 Body weight 95.43 kg Tamanna Cardoza MA [facility] [employer] 07-26-2024 08:56-0500 Diastolic blood pressure 84 mm[Hg] Tamanna Cardoza MA [facility].; [employer]. Comment on above: Patient Position: Sitting; Cuff Location : Left Arm; Cuff Size: Standard 07-26-2024 08:56-0500 Heart rate 102 /min Tamanna Cardoza MA [facility].; [employer], [employer]. Comment on above: Pattern: Regular 07-26-2024 08:56-0500 Systolic blood pressure 142 mm[Hg] Tamanna Cardoza MA [place] [employer]. Comment on above: Patient Position: Sitting; Cuff Location : Left Arm; Cuff Size: Standard 12-21-2023 09:05-0400 Diastolic blood pressure 84 mm[Hg] Tamanna Cardoza MA [facility].; [facility]. Comment on above: Patient Position: Sitting; Cuff Location : Left Arm; Cuff Size: Standard 12-21-2023 09:05-0400 Heart rate 114 /min Tamanna Cardoza MA [facility].; [employer]. Comment on above: Pattern: Regular 12-21-2023 09:05-0400 Systolic blood pressure 138 mm[Hg] Tamanna Cardoza MA [facility] [employer]. Comment on above: Patient Position: Sitting; Cuff Location : Left Arm; Cuff Size: Standard 12-21-2023 09:00-0400 Body height 166.37 cm Tamanna Cardoza MA [facility].; [employer]. 12-21-2023 09:00-0400 Body mass index (BMI) [Ratio] 36.71 kg/m2 Tamanna Cardoza MA [facility].; [place] [employer], [employer]. 12-21-2023 09:00-0400 Body surface area Derived from formula 2.09 m2 Tamanna Cardoza MA [facility].; [place] [facility] + Isabel [facility], [facility]. 12-21-2023 09:00-0400 Body weight 101.61 kg Tamanna Cardoza MA [facility].; [place] [employer] [facility]. 12-21-2023 09:00-0400 Diastolic blood pressure 93 mm[Hg] Tamanna Cardoza MA [place] [employer] + Isabel [facility].; [employer]. Comment on above: Patient Position: Sitting; Cuff Location : Left Arm; Cuff Size: Standard 12-21-2023 09:00-0400 Heart rate 116 /min Tamanna Cardoza MA [place] [facility] + Isabel [facility].; [employer]. Comment on above: Pattern: Regular 12-21-2023 09:00-0400 Systolic blood pressure 150 mm[Hg] Tamanna Cardoza MA [place] [employer] + Isabel [facility].; [employer]. Comment on above: Patient Position: Sitting; Cuff Location : Left Arm; Cuff Size: Standard 09-15-2023 10:32-0500 Body height 166.37 cm Tamanna Cardoza MA [facility], [employer].; [facility]. 09-15-2023 10:32-0500 Body mass index (BMI) [Ratio] 36.6 kg/m2 Tamanna Cardoza MA [facility]. 09-15-2023 10:32-0500 Body surface area Derived from formula 2.08 m2 Tamanna Cardoza MA [facility].; [employer]. 09-15-2023 10:32-0500 Body temperature 98.8 [degF] Tamanna Cardoza MA [facility].; [employer]. 09-15-2023 10:32-0500 Body weight 101.29 kg Tamanna Cardoza MA [facility].; [employer]. 09-15-2023 10:32-0500 Diastolic blood pressure 86 mm[Hg] Tamanna Cardoza MA [facility].; [employer]. Comment on above: Patient Position: Sitting; Cuff Location : Left Arm; Cuff Size: Standard 09-15-2023 10:32-0500 Heart rate 121 /min Tamanna Cardoza MA [facility].; [employer]. Comment on above: Pattern: Regular 09-15-2023 10:32-0500 Systolic blood pressure 143 mm[Hg] Tamanna Cardoza MA [facility].; [employer]. Comment on above: Patient Position: Sitting; Cuff Location : Left Arm; Cuff Size: Standard 06-25-2023 10:15-0500 Body height 166.37 cm Carito Banda LPN [facility].; [place] [facility]. 06-25-2023 10:15-0500 Body mass index (BMI) [Ratio] 36.71 kg/m2 Carito Banda LPN [facility] Neal [employer], [employer]. 06-25-2023 10:15-0500 Body surface area Derived from formula 2.09 m2 Carito Banda INTELLIGENCE OFFICER BASIC [facility] Center[facility].; [employer]. 06-25-2023 10:15-0500 Body weight 101.61 kg Carito Cravenlabach INTELLIGENCE OFFICER BASIC [facility], [facility].; [employer]. 06-25-2023 10:15-0500 Diastolic blood pressure 78 mm[Hg] Carito Ramirez Veronika CONNER [facility] [employer]. Comment on above: Patient Position: Sitting; Cuff Location : Left Arm; Cuff Size: Standard 06-25-2023 10:15-0500 Heart rate 106 /min Carito Ramirez Veronika CONNER [facility] [employer]. Comment on above: Pattern: Regular 06-25-2023 10:15-0500 Systolic blood pressure 137 mm[Hg] Carito Ramirez Veronika CONNER [facility] [employer]. Comment on above: Patient Position: Sitting; Cuff Location : Left Arm; Cuff Size: Standard 11-08-2021 08:21-0400 Body height 166.37 cm Carito Ashley Banda LPN [facility], [facility].; [employer], [employer]. 11-08-2021 08:21-0400 Body mass index (BMI) [Ratio] 34.41 kg/m2 Carito Ashley Veronika INTELLIGENCE OFFICER BASIC [facility] [employer], [employer]. 11-08-2021 08:21-0400 Body surface area Derived from formula 2.03 m2 Caritoarben Banda INTELLIGENCE OFFICER BASIC [place] [employer] + Isabel [facility], [facility].; [employer]. 11-08-2021 08:21-0400 Body weight 95.26 kg Carito Ramirez Veronika CONNER [place] [facility] + Isabel [facility], [facility].; [employer], [employer]. 11-08-2021 08:21-0400 Diastolic blood pressure 87 mm[Hg] Carito Ramirez Veronika INTELLIGENCE OFFICER BASIC [place] [facility] + Isabel [facility], [employer].; [employer], [employer]. Comment on above: Patient Position: Sitting; Cuff Location : Left Arm; Cuff Size: Standard 11-08-2021 08:21-0400 Heart rate 111 /min Carito Ramirez Veronika CONNER [place] [facility] + Isabel [facility], [employer].; [employer]. Comment on above: Pattern: Regular 11-08-2021 08:21-0400 Systolic blood pressure 131 mm[Hg] Carito Banda LPN [employer].; [employer]. Comment on above: Patient Position: Sitting; Cuff Location : Left Arm; Cuff Size: Standard 03-11-2017 14:50-0400 Body height 165.1 cm Quirino Mcdowell PA-C Work Phone: [employer]; [employer]. 03-11-2017 14:50-0400 Body mass index (BMI) [Ratio] 27.46 kg/m2 Quirino Mcdowell PA-C Work Phone: [employer]; [employer]. 03-11-2017 14:50-0400 Body surface area Derived from formula 1.82 m2 Quirino Mcdowell PA-C Work Phone: [employer]; [employer]. 03-11-2017 14:50-0400 Body weight 74.84 kg Quirino Mcdowell PA-C Work Phone: [employer]; [employer]. 03-11-2017 14:50-0400 Diastolic blood pressure 81 mm[Hg] Quirino Mcdowell PA-C Work Phone: [employer]; [employer]. Comment on above: Patient Position: Sitting; Cuff Location : Left Arm; Cuff Size: Standard 03-11-2017 14:50-0400 Heart rate 74 /min Quirino Mcdowell PA-C Work Phone: [employer]; [employer]. Comment on above: Pattern: Regular 03-11-2017 14:50-0400 Systolic blood pressure 124 mm[Hg] Quirino Mcdowell PA-C Work Phone: [employer]; [employer]. Comment on above: Patient Position: Sitting; Cuff Location : Left Arm; Cuff Size: Standard Encounters Encounter Date Encounter Type Care Provider Facility Start: 03-07-2025 ambulatory Quirino Mcdowell PA Facil ity:[facility] Start: 03-06-2025 Encounter for other preprocedural examination Alden Lacy [facility] Start: 02-07-2025 End: 02-07-2025 ambulatory QUIRINO Thao MCDOWELL [facility] Start: 02-06-2025 End: 02-06-[address] Alden Lacy MD [facility] Work Phone: Start: 02-06-2025 End: 02-06-2025 ambulatory Quirino Mcdowell PA Work Phone: -[facility] Start: 02-02-2025 End: 02-02-2025 Patient encounter procedure Quirino Mcdowell PA-C Work Phone: [employer] Start: 01-04-2025 End: 01-04-2025 Office outpatient visit 15 minutes Quirino Mcdowell PA-C Work Phone: [employer] Start: 10-20-2024 End: 10-20-2024 ambulatory BISI [employer] DISPATCHER RamiroBALES [facility] Start: 08-25-2024 End: 08-25-2024 Orders Quirino Mcdowell PA-C Work Phone: [employer] Start: 08-25-2024 End: 08-25-[address] [facility] Start: 08-18-2024 End: 08-18-2024 Office outpatient visit 15 minutes Quirino Mcdowell PA-C Work Phone: [employer] Start: 08-18-2024 Review Quirino Mcdowell PA-C Work Phone: [employer] Start: 07-26-2024 End: 07-26-2024 Office outpatient visit 15 minutes Quirino Mcdowell PA-C Work Phone: [employer] Start: 12-21-2023 End: 12-21-2023 Office outpatient visit 15 minutes Quirino Mcdowell PA-C Work Phone: [employer]. Start: 12-21-2023 Review Quirino Marcoser PA-C Work Phone: [employer]. Start: 2023 End: 2023 Medication Quirino Marcoser PA-C Work Phone: [employer]. Start: 09-15-2023 End: 09-15-2023 Office outpatient visit 15 minutes Quirino Marcoser PA-C Work Phone: [employer]. Start: 07-09-2023 End: 07-09-2023 Orders Quirino Marcoser PA-C Work Phone: [employer]. Start: 06-25-2023 End: 06-25-2023 Office outpatient visit 15 minutes Quirino Marcoser PA-C Work Phone: [employer]. Start: 11-08-2021 End: 11-08-2021 Patient encounter procedure Quirino Mcdowell PA-C Work Phone: [employer]. Start: 03-18-2017 End: 03-18-2017 Nursing evaluation of patient and report Quirino Mcdowell PA-C Work Phone: [employer]. Start: 03-11-2017 End: 03-11-2017 Initial preventive medicine new pt age 18-39yrs Quirino Marcoser PA-C Work Phone: [employer]. Start: 03-11-2017 End: 03-11-2017 Patient encounter status Quirino Mcdowell PA-C Work Phone: [employer].; [employer] Patient encounter procedure Carito Banda LPN [employer].; [employer] Patient encounter procedure Tamanna Cardoza MA [employer].; [employer] Patient encounter procedure Zo Strange LPN [employer].; [employer] Procedures Date Procedure Procedure Detail Performing Clinician Start: 02-02-2025 End: 02-07-2025 Chest x-ray Quirino Master RUIZ- C Work Phone: Start: 08-18-2024 End: 08-25-2024 Us pelvic nonobstetric real-time image complete Quirino Thao Jeremias RUIZ-C Work Phone: Start: 07-26-2024 End: 07-26-2024 No Known Past Surgical History Tamanna Cardoza MA Start: 06-25-2023 End: 07-09-2023 Us soft tissue head & neck real time imge docm Quirino Master RUIZ-C Work Phone: Start: 11-08-2021 End: 11-08-2021 Depression screening Quirino Master RUIZ -C Work Phone: Start: 11-08-2021 End: 11-08-2021 Pos clin depres scrn f/u doc Quiirnolandry RUIZ-C Work Phone: Start: 01-09-2020 End: 01-09-2020 Microscopic examination of cervical Papanicolaou smear Carito Banda LPN Start: 03-11-2017 End: 03-11-2017 No Known Past Surgical History Carito Banda LPN section Tamanna vaz MA section Quirinolandry gonzales PA-C Work Phone: Plan of Treatment Date Care Activity Detail Author Start: 02-02-2025 Chest x-ray CHEST X-RAY, P A AND LATERAL ([id number]) Start: 02-Feb-2025 Intent [employer] Start: 08-18-2024 Iadna day specie s direct probe tq BV, Yeast, Trich ([id number], [id number], [id number]) Start: 18-Aug-2024 09:15-05:00 Request [employer]; [employer]. Start: 08-18-2024 End: 08-18-2024 Us pelvic nonobstetric real-time image complete Pelvic Ultrasound ([id number]) Date: 18-Aug-2024 [employer] Start: 08-18-2024 Culture bacterial quanttative colony count urine Urine Culture ([id number]) Start: 18-Aug-2024 08:57-05:00 Request [employer]; [employer] Start: 08-18-2024 Urnls dip stick/tabl et rgnt auto w/o microscopy Urinalysis, Automated w/o micro (in house)* ([id number]) Start: 18-Aug-2024 08:57-05:00 Request [employer]; [employer] Start: 07-26-2024 Virus id non-immunol ogic oth/thn cytopathic HSV Rapid Culture with Typing ([id number], [id number]) ([id number]) Start: 26-Jul-2024 09:10-05:00 Request [employer]; [employer] Start: 09-15-2023 Culture bacterial quanttative colony count urine Urine Culture ([id number]) Start: 15-Sep-2023 8:28 Request [employer]; [employer] Immunizations Immunization Date Immunization Notes Care Provider Serjio pruitt 03-18-2017 tetanus toxoid, redu eric diphtheria toxoid, and acellular pertussis vaccine, adsorbed Quirino Mcdowell PA-Janak Work Phone: [employer]; [employer]. Comment on above: Site: Deltoid (Left) VIS Given: * Tdap (Tetanus, Diphtheria, Pertussis) (10/03/14) 08-10-2012 TD(adult) unspecifie d formulation Quirino Mcdowell PA-C Work Phone: [employer]; [employer] Payers Date Payer Category Payer Self-pay 1990 Unknown [id number] 1990 Unknown [id number] Unknown [id number] Unknown Unknown [id number] Unknown [id number] Social History Date Type Detail Facility [facility], [facility] Tobacco Use: Tobacco Use: ; N ever smoker. [facility].; [facility], [facility]. Start: 1990 Female [facility] Start: 02-06-2025 Never smoked tobacco [facility] Evaluation note Note Date & Type Note Facility Evaluation note No assessment information availa [facility] Work Phone: Reason for referral (narrative) Note Date & Type Note Facility Reason for referral (narrative) No reason for referral information available [employer] [facility] Work Phone: Summary Purpose Family History No Family History Records Found Breast Cancer Status:Active Coronary Artery Disease Status:Active Comments :Maternal Grandmother. pancreatic cancer Status:Active Comments:Mater nal Grandfather. Skin Cancer Status:Active Comments:Mother. Thyroid problems Status:Active Comments:Mother . Breast Cancer Status:Active Coronary Artery Disease Status:Active Comments :Maternal Grandmother. pancreatic cancer Status:Active Comments:Mater nal Grandfather. Skin Cancer Status:Active Comments:Mother. Thyroid problems Status:Active Comments:Mother . Breast Cancer Status:Active Coronary Artery Disease Status:Active Comments :Maternal Grandmother. pancreatic cancer Status:Active Comments:Mater nal Grandfather. Skin Cancer Status:Active Comments:Mother. Thyroid problems Status:Active Comments:Mother . Breast Cancer Status:Active Coronary Artery Disease Status:Active Comments :Maternal Grandmother. pancreatic cancer Status:Active Comments:Mater nal Grandfather. Skin Cancer Status:Active Comments:Mother. Thyroid problems Status:Active Comments:Mother . Breast Cancer Status:Active Coronary Artery Disease Status:Active Comments :Maternal Grandmother. pancreatic cancer Status:Active Comments:Mater nal Grandfather. Skin Cancer Status:Active Comments:Mother. Thyroid problems Status:Active Comments:Mother . Breast Cancer Status:Active Coronary Artery Disease Status:Active Comments :Maternal Grandmother. pancreatic cancer Status:Active Comments:Mater nal Grandfather. Skin Cancer Status:Active Comments:Mother. Thyroid problems Status:Active Comments:Mother . Breast Cancer Status:Active Coronary Artery Disease Status:Active Comments :Maternal Grandmother. pancreatic cancer Status:Active Comments:Mater nal Grandfather. Skin Cancer Status:Active Comments:Mother. Thyroid problems Status:Active Comments:Mother . Breast Cancer Status:Active Coronary Artery Disease Status:Active Comments :Maternal Grandmother. pancreatic cancer Status:Active Comments:Mater nal Grandfather. Skin Cancer Status:Active Comments:Mother. Thyroid problems Status:Active Comments:Mother . Breast Cancer Status:Active Coronary Artery Disease Status:Active Comments :Maternal Grandmother. pancreatic cancer Status:Active Comments:Mater nal Grandfather. Skin Cancer Status:Active Comments:Mother. Thyroid problems Status:Active Comments:Mother . Breast Cancer Status:Active Coronary Artery Disease Status:Active Comments :Maternal Grandmother. pancreatic cancer Status:Active Comments:Mater nal Grandfather. Skin Cancer Status:Active Comments:Mother. Thyroid problems Status:Active Comments:Mother . Breast Cancer Status:Active Coronary Artery Disease Status:Active Comments :Maternal Grandmother. pancreatic cancer Status:Active Comments:Mater nal Grandfather. Skin Cancer Status:Active Comments:Mother. Thyroid problems Status:Active Comments:Mother . Breast Cancer Status:Active Coronary Artery Disease Status:Active Comments :Maternal Grandmother. pancreatic cancer Status:Active Comments:Mater nal Grandfather. Skin Cancer Status:Active Comments:Mother. Thyroid problems Status:Active Comments:Mother . Breast Cancer Status:Active Coronary Artery Disease Status:Active Comments :Maternal Grandmother. pancreatic cancer Status:Active Comments:Mater nal Grandfather. Skin Cancer Status:Active Comments:Mother. Thyroid problems Status:Active Comments:Mother . Breast Cancer Status:Active Coronary Artery Disease Status:Active Comments :Maternal Grandmother. pancreatic cancer Status:Active Comments:Mater nal Grandfather. Skin Cancer Status:Active Comments:Mother. Thyroid problems Status:Active Comments:Mother . Relationship Condition Age at Onset Recorded Date/T roscoe mother Diabetes mellitus Unknown Malignant melanoma of skin Unknown Malignant neoplasm of breast Unknown aunt Malignant neoplasm of breast Unknown grandmother Malignant neoplasm of breast Unknown Breast Cancer Status:Active Coronary Artery Disease Status:Active Comments :Maternal Grandmother. pancreatic cancer Status:Active Comments:Mater nal Grandfather. Skin Cancer Status:Active Comments:Mother. Thyroid problems Status:Active Comments:Mother . Breast Cancer Status:Active Coronary Artery Disease Status:Active Comments :Maternal Grandmother. pancreatic cancer Status:Active Comments:Mater nal Grandfather. Skin Cancer Status:Active Comments:Mother. Thyroid problems Status:Active Comments:Mother . Advance Directives No Advanced Directives Records FoundNo Advanced Directives Records FoundNo Advanced Directives Records FoundNo Advanced Directives Records FoundNo Advanced Directives Records Found Chief Complaint and Reason for Visit Chief Complaint Admit Date GERD- SELF PAY February 06, 2025 8:59 am Additional Source Comments INFORMATION SOURCE (unrecogn ized section and content) DATE CREATED AUTHOR 07/15/2019 [facility] DATE CREATED AUTHOR AUTHOR'S ORGANIZ ATION 01/05/2020 [facility] DATE CREATED AUTHOR AUTHOR'S ORGANIZ ATION 08/24/2024 [facility] DATE CREATED AUTHOR AUTHOR'S ORGANIZ ATION 02/08/2025 [facility] DATE CREATED AUTHOR AUTHOR'S ORGANIZ ATION 03/07/2025 [facility] Care Teams (unrecognized sec tion and content) Team Status: Active Member Role/Relationship Status Dates SARA Tipton Primary Care Provider Active Team Status: Inactive Member Role/Relationship Status Dates SARA Tipton Primary Care Provider Active Start: February 06, 2025 End: February 06, 2025 SARA Tipton Referring Provider Active Start: February 06, 2025 End: February 06, 2025 Dr. Alden Lacy MD Attending Provider Active Start: February 06, 2025 End: February 06, 2025 Goals (unrecognized section and content) Goals may be documented in a n alternate section FOR RECORDS PERTAINING TO PATIENTS WHO ARE OR HAVE BEEN ENROLLED IN A CHEMICAL DEPENDENCY/SUBSTANCEABUSE PROGRAM, SOME INFORMATION MAY BE OMITTED. This clinical summary was aggregated from multiple sources. Caution should be exercised in using it in the provision of clinical care. This summary normalizes information from multiple sources, and as a consequence, information in this document may materially change the coding, format and clinical context of patient data. In addition, data may be omitted in some cases. CLINICAL DECISIONS SHOULD BE BASED ON THE PRIMARY CLINICAL RECORDS. [employer] [facility]. provides no warranty or guarantee of the accuracy or completeness of information in this document.
[2025-03-07 07:22] LABS: Internal QC Validated? YES +Cl - CLEAR BKGD; Pregnancy, Urine Negative Negative; Record Kit Lot#,Urine Preg 0000962302
[2025-03-07] MEDS: Lactated Ringers 1,000 ML 15 ML IV (07:42)
--- NOTE | 2025-03-07 08:01 | PRE.ANES_ITS ---
ASA Classification* ASA Classification ASA Classification: 2 Assessment & Plan Anesthesia* Anesthesia Assessment Anesthesia Assessment: Discussed sedation and/or anesthesia options, risks, benefits, and alternatives with patient/parents/legal guardian/POA. Questions invited. The patient/parents/legal guardian/POA seems to understand and agrees to proceed with anesthesia plan. Reviewed the physical assessment, medical history, allergy history and patient home medications list prior to surgery/procedure/anesthetic and documented any changes. Performed airway and anesthesia risk assessments. Anesthesia Type Anesthesia Type: MAC History Source History Obtained from:: Patient and Chart Anesthesia Focused Assessment* Temperature: 98.5 F Pulse Rate: 95 Blood Pressure: 136/85 Respiratory Rate: 18 Pulse Ox: 98 Oxygen Delivery Method: Room Air Airway Assessment Mouth opens: >3 cm Mallampati Score: IV Teeth Condition: Intact Neck Range of motion (ROM): Full ROM Labs Anesthesia Preop lab: CBC WBC 12.0 K/mm3 (4.4-11.0) H 01/06/20 04:55 0 RBC 3.54 M/mm3 (4.2-5.4) L 01/06/20 04:55 01/06/20 Hgb 9.3 g/dL (12.0-15.0) L 01/06/20 04:55 01/06/20 Hct 29.3 % (37-47) L 01/06/20 04:55 01/06/20 Plt Count 169 K/mm3 (150-450) 01/06/20 04:55 01/06/20 CHEMISTRY Creatinine 0.55 mg/dL (0.55-1.02) 01/05/20 14:40 01/05/20 COAG PT 12.3 SECONDS (11.7-14.9) 01/05/20 14:40 Urine Test Negative Negative 03/07/25 07:15 03/07/25 Pre-Assessment Diagnosis/Proposed Procedure Planned Operative Procedure(s): EGD Anesthesia History Anesthesia History - classifications officer cc/cm: Anesthesia History - classifications officer cc/cm Hx Hospitalization No 03/02/25 09:30 Any Problems With Anesthesia No 03/02/25 09:30 Cholinesterase deficiency No 03/02/25 09:30 You/Your Family Experience No 03/02/25 09:30 fever (hyperthermia) with Relationship Recent Exposure to Contagious No 03/07/25 07:25 Disease Does patient have nerve No 03/02/25 09:30 stimulator Patient instructed to have device shut off --Does patient have Pacemaker No 03/07/25 07:25 or ICD? When Was Last Pacemaker Check QUESTION #4 FULL TEXT: You/Your Family Experience fever (hyperthermia) with Anesthesia Last Oral Intake Last Oral intake: Last Oral Intake NPO since 22:30 03/07/25 07:25 Meds taken in AM with sips of No 03/07/25 07:25 water? Meds patient instructed to take am of surgery PONV PONV - classifications officer cc/cm: PONV - classifications officer cc/cm Female Yes 03/02/25 09:30 HX of Motion Sickness Yes 03/02/25 09:30 HX of N/V After Surgery No 03/02/25 09:30 Non-Smoker Yes 03/02/25 09:30 Duration of Surgery greater No 03/02/25 09:30 than 60 minutes Number of Risk Factors 3 03/02/25 09:30 PONV Score Moderate Risk 03/02/25 09:30 Height & Weight Height & Weight: Anesthesia: Height & Weight Height 5 ft 6 in 03/07/25 07:25 Weight: 97 kg 03/07/25 07:25 Body Mass Index (BMI) 34.4 03/07/25 07:25 Respiratory Assessment Respiratory Assessment - classifications officer cc/cm: Respiratory Tract Infection Hx - classifications officer cc/cm Hx Respiratory Tract Infection No 03/02/25 09:30 STOP Sleep Apnea STOP Sleep Apnea - classifications officer cc/cm: STOP Sleep Apnea - classifications officer cc/cm Hx Hypertension No 03/02/25 09:30 Hx Sleep Apnea No 03/02/25 09:30 CPAP BIPAP Do you snore loudly (louder No 03/02/25 09:30 than talking or can be heard Do you often feel tired/ No 03/02/25 09:30 fatigued/ sleepy during daytime? Has anyone observed you stop No 03/02/25 09:30 breathing during sleep? STOP Results Negative 03/02/25 09:30 QUESTION #5 FULL TEXT : Do you snore loudly (louder than talking or can be heard through closed doors)? 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 Specify any problems Hx of Preganancy in last 3 No 03/02/25 09:30 Months Nurse Filling Out Transfusion DSCHRIBER 03/02/25 09:30 & Questions: Date: 03/02/25 03/02/25 09:30 Time: 09:31 03/02/25 09:30 Patient unable to answer at this time (ie. confused, unrespo /Reproduction History /Reproductive History - classifications officer cc/cm: /Reproductive Hx- classifications officer cc/cm Hx Now No 03/02/25 09:30 Gestational Age (in weeks): EDC: Hx Hx Para Hx Section SAB No 03/02/25 09:30 Active Medications Active Medications: Current Medications Generic Name Dose Route Start Last Admin Trade Name Freq PRN Reason Stop Dose Admin Lactated Ringer's 1,000 mls @ 15 mls/hr 03/07/25 07:30 03/07/25 07:42 IV 15 mls/hr .Q48H ELDER Administration PFSH Medical History Wears glasses Shortness of breath on exertion Dysphagia Heart murmur Anxiety Depression GERD (gastroesophageal reflux disease) Globus sensation Home Medications ?Medication ?Instructions ?Recorded ?Last Taken ?Type omeprazole 40 mg capsule,delayed 40 mg PO QAM 02/06/25 03/06/25 History release Allergy/AdvReac Type Severity Reaction Status Date / Time No Known Allergies Allergy Verified 03/07/25 07:24 Family History Mother Diabetes Skin cancer (melanoma) Breast cancer Aunt Breast cancer Grandmother Breast cancer Surgical History Hx of wisdom tooth extraction S/P section Social History Smoking Status: Never smoker alcohol intake: current Review of Systems (Anesthesia) ROS Narrative System reviewed and no additional complaints, except as documented.
--- NOTE | 2025-03-07 08:05 | HP.PCM_ITS ---
HPI - General General Date of Admission: 03/07/25 Date of Service: 03/07/25 Chief Complaint: reflux HPI Narrative BARB YBARRA, is a 34 F who presents for EGD. Patient has been having heartburn and reflux symptoms for several months. She has been on a PPI per her PCP. Her symptoms are greatly improved however she is still having some occasional heartburn symptoms. EGD was recommended. [facility] Medical History Wears glasses Shortness of breath on exertion Dysphagia Heart murmur Anxiety Depression GERD (gastroesophageal reflux disease) Globus sensation Home Medications ?Medication ?Instructions ?Recorded ?Last Taken ?Type omeprazole 40 mg capsule,delayed 40 mg PO QAM 02/06/25 03/06/25 History release Allergy/AdvReac Type Severity Reaction Status Date / Time No Known Allergies Allergy Verified 03/07/25 07:24 Family History Mother Diabetes Skin cancer (melanoma) Breast cancer Aunt Breast cancer Grandmother Breast cancer Surgical History Hx of wisdom tooth extraction S/P section Social History Smoking Status: Never smoker alcohol intake: current Vital Signs Vital Signs Vital Signs: 03/07/25 07:25 03/07/25 07:25 Temperature 98.5 F Temperature Source Temporal Pulse Rate 95 Respiratory Rate 18 Respiratory Pattern Normal Blood Pressure 136/85 H Blood Pressure Mean 102 Blood Pressure Source Monitor Blood Pressure Position Semi-Fowlers Blood Pressure Location Left Arm Pulse Ox 98 Oxygen Delivery Method Room Air Weight Weight: 213 lb 13.574 oz Body Mass Index (BMI) 34.4 Physical Exam Const alert, oriented x3 and no apparent distress Results Lab / Micro Data Labs: Laboratory Results - last 24 hr 03/07/25 07:15: Urine Test Negative Assessment & Plan Assessment/Plan (1) GERD (gastroesophageal reflux disease): PLAN: Plan Plan is for EGD today. Discussed details of the planned procedure and she wishes to proceed.
--- NOTE | 2025-03-07 08:15 | EGD_PTH ---
PATIENT: BARB YBARRA LOC: EN U#:[id number] AGE/SX: 34/F ROOM: RE03/07/[address]: Dr. Alden Lacy MD : 1990 BED: DIS: 03/07/2025 SPEC #: [id number] RECD: 03/07/25 09:44 STATUS: DANILO REAve #: [id number] RANGEL: 03/07/25 08:[address]: Alden Lacy DEPT: SURGICAL PATHOLOGY RECD BY: Jayesh Kitchen ENTERED: 03/07/25 10:50 SP TYPE: EGD BIOPSY OT DR: SARA Nieves Tissues: A - Gastric mucous membrane B - Gastric mucous membrane C - Esophagus, NOS Procedures: Immunohistochemical Stains Surgery Specimen Level IV HEADER OPERATION: EGD with biopsy PRE-OP DIAGNOSIS: GERD TISSUE SUBMITTED: A- Antrum biopsy, B- Gastric polyp biopsy, C- GE junction biopsy MICROSCOPIC DIAGNOSIS A. Stomach, antrum, biopsy: * Antral/oxyntic mucosa with mild chronic inflammation * No morphologic evidence of Helicobacter pylori organisms on H&E or immunostained sections B. Stomach, gastric polyp, biopsy: * Fundic gland polyp C. GE junction, biopsy: * Benign squamous epithelium with no pathologic change * Gastric type mucosa is not identified MICROSCOPIC DESCRIPTION Slides are reviewed. All matched controls reacted appropriately. These tests were developed and their performance characteristics determined by [facility]. They may not have been cleared or approved by the U.S. Food and Drug Administration. The FDA has determined that such clearance or approval is not necessary. The above immunohistochemical/dualISH markers are viewed by the Pathologist. GROSS DESCRIPTION A. Received in fixative is one container labeled with the patient's name and designated Antrum biopsy. The specimen consists of one irregular fragment of light adames soft tissue that measures 0.3 cm. The specimen is totally submitted in one cassette. B. Received in fixative is one container labeled with the patient's name and designated Gastric polyp biopsy. The specimen consists of one irregular fragment of light adames soft tissue that measures 0.5 cm. The specimen is totally submitted in one cassette. C. Received in fixative is one container labeled with the patient's name and designated GE junction biopsy. The specimen consists of one irregular fragment of light adames soft tissue that measures 0.5 cm. The specimen is totally submitted in one cassette. RI 03/07/2025 CPT:[id number]
--- NOTE | 2025-03-07 08:31 | PCM.POST.ANE ---
Anesthesia: Postop Eval I Current Vital Signs Temperature: 98.3 F Pulse Rate: 101 Blood Pressure: 133/85 Respiratory Rate: 18 Pulse Ox: 96 Oxygen Delivery Method: Room Air Assessment Airway patent: Yes Spontaneous unlabored respirations: Yes Mental status: Awake and Calm nausea: No Vomiting: No Anesthesia Complication: No Fluid Hydration Crystalloid volume administer (ml): 400 Total IV fluid infused: 400 Progress Note Anesthesia document: Postop Eval 1 completed: Yes
--- NOTE | 2025-03-07 08:32 | OP.EGD_ITS ---
Patient Name: Nelly Rogers Procedure Date: 03/07/2025 7:57 AM Date of : 1990 Age: 34 Procedure: Upper GI endoscopy Indications: Heartburn Providers: Alden Lacy MD Medicines: Monitored Anesthesia Care Patient Profile: Refer to note in patient chart for documentation of history and physical. Patient has symptoms of acute heartburn. Complications: No immediate complications. Estimated blood loss: Minimal. Procedure: Pre-Anesthesia Assessment: - Prior to the procedure, a History and Physical was performed, and patient medications and allergies were reviewed. The patient's tolerance of previous anesthesia was also reviewed. The risks and benefits of the procedure and the sedation options and risks were discussed with the patient. All questions were answered, and informed consent was obtained. Prior Anticoagulants: The patient has taken no anticoagulant or antiplatelet agents. ASA Grade Assessment: I - A normal, healthy patient. After reviewing the risks and benefits, the patient was deemed in satisfactory condition to undergo the procedure. After obtaining informed consent, the endoscope was passed under direct vision. Throughout the procedure, the patient's blood pressure, pulse, and oxygen saturations were monitored continuously. The Endoscope was introduced through the mouth, and advanced to the second part of duodenum. The upper GI endoscopy was accomplished without difficulty. The patient tolerated the procedure well. Moderate Sedation: See the other procedure note for documentation of moderate sedation with intraservice time. Scope In: 8:16:44 AM Scope Out: 8:24:32 AM Total Procedure Duration Time 0 hours 7 minutes 48 seconds Findings: The examined duodenum was normal. Diffuse mild inflammation was found in the gastric body. Biopsies were taken with a cold forceps for Helicobacter pylori testing. Verification of patient identification for the specimen was done by the nurse using the patient's name, date and medical record number. A few 2 mm semi-pedunculated polyps with no bleeding and no stigmata of recent bleeding were found in the stomach. The polyp was removed with a cold biopsy forceps. Resection and retrieval were complete. Verification of patient identification for the specimen was done by the nurse using the patient's name, date and medical record number. Estimated blood loss was minimal. The examined esophagus was normal. Mucosa was biopsied with a cold forceps for histology randomly at the gastroesophageal junction. Verification of patient identification for the specimen was done by the nurse using the patient's name, date and medical record number. Estimated blood loss was minimal. The exam was otherwise without abnormality. Impression: - Normal examined duodenum. - Gastritis. Biopsied. - A few gastric polyps. Resected and retrieved. - Normal esophagus. Biopsied. - The examination was otherwise normal. Recommendation: - Discharge patient to home (ambulatory). - High fiber diet. - Continue present medications. - Await pathology results. - Repeat upper endoscopy for surveillance based on pathology results. - Return to my office PRN. Procedure Code(s): --- Professional --- 11890, Esophagogastroduodenoscopy, flexible, transoral; with biopsy, single or multiple Diagnosis Code(s): --- Professional --- R12, Heartburn K29.70, Gastritis, unspecified, without bleeding K31.7, Polyp of stomach and duodenum CPT copyright 2021 [employer]. All rights reserved. The codes documented in this report are preliminary and upon floor worker transfer bay review may be revised to meet current compliance requirements. Alden Lacy MD 03/07/2025 8:31:42 AM This report has been signed electronically. Number of Addenda: 0 Note Initiated On: 03/07/2025 7:57 AM
--- NOTE | 2025-03-07 08:32 | OP.PROVAT_ITS ---
03/07/2025 Jeannine Mcdowell Re : Upper GI endoscopy procedure for Nelly Marcoser This procedure was performed on Friday, March 07, 2025. My impressions and recommendations are as follows: Impressions : - Normal examined duodenum. - Gastritis. Biopsied. - A few gastric polyps. Resected and retrieved. - Normal esophagus. Biopsied. - The examination was otherwise normal. Recommendations : - Discharge patient to home (ambulatory). - High fiber diet. - Continue present medications. - Await pathology results. - Repeat upper endoscopy for surveillance based on pathology results. - Return to my office PRN. My findings are described in the full procedure note, which is enclosed. If I can be of further assistance, please feel free to contact me at . Sincerely, Alden Lacy MD 03/07/2025 8:31:42 AM This report has been signed electronically.
--- NOTE | 2025-03-07 13:37 | POSTOPAN2_ITS ---
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 Spontaneous unlabored Yes 03/07/25 08:32 HIV PREVENTION SPECIALIST.GDOTT respirations Mental status Awake,Calm 03/07/25 08:32 HIV PREVENTION SPECIALIST.GDOTT nausea No 03/07/25 08:32 HIV PREVENTION SPECIALIST.GDOTT Vomiting No 03/07/25 08:32 HIV PREVENTION SPECIALIST.GDOTT Anesthesia Postop Eval I: Fluid Summary Crystalloid volume administer 400 03/07/25 08:32 HIV PREVENTION SPECIALIST.GDOTT (ml) Colloids volume administered ( ml) Blood Product volume administered (ml) Total IV fluid infused 400 03/07/25 08:32 HIV PREVENTION SPECIALIST.GDOTT Anesthesia Postop Eval I: Summary Notes Anesthesia Complication No 03/07/25 08:32 HIV PREVENTION SPECIALIST.GDOTT Anesthesia Complication Comment: Post-operative progress note Anesthesia: Postop Eval II Evaluation Mental status: Awake and Calm Pain Level: 0 nausea: No Vomiting: No Complications Anesthesia Complication: No
--- NOTE | 2025-03-07 13:37 | PCM.POSTANE2 ---
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 Spontaneous unlabored Yes 03/07/25 08:32 GROUND SERVICE EQUIPMENT MECHANIC.GDOTT respirations Mental status Awake,Calm 03/07/25 08:32 GROUND SERVICE EQUIPMENT MECHANIC.GDOTT nausea No 03/07/25 08:32 GROUND SERVICE EQUIPMENT MECHANIC.GDOTT Vomiting No 03/07/25 08:32 GROUND SERVICE EQUIPMENT MECHANIC.GDOTT Anesthesia Postop Eval I: Fluid Summary Crystalloid volume administer 400 03/07/25 08:32 GROUND SERVICE EQUIPMENT MECHANIC.GDOTT (ml) Colloids volume administered ( ml) Blood Product volume administered (ml) Total IV fluid infused 400 03/07/25 08:32 GROUND SERVICE EQUIPMENT MECHANIC.GDOTT Anesthesia Postop Eval I: Summary Notes Anesthesia Complication No 03/07/25 08:32 GROUND SERVICE EQUIPMENT MECHANIC.GDOTT Anesthesia Complication Comment: Post-operative progress note Anesthesia: Postop Eval II Evaluation Mental status: Awake and Calm Pain Level: 0 nausea: No Vomiting: No Complications Anesthesia Complication: No
== END 2025-03-07 09:03 | disposition home or self-care (01) ==
LOC: EN 07:09 → AC 07:09
PROVIDERS: Student in an Organized Health Care Education/Training Program; PCP Physician Assistant; Referring Provider Surgery; Visit Provider Surgery
PROC: 0DJ08ZZ Inspection of Upper Intestinal Tract, Via Natural or Artificial Opening Endoscopic (ICD-10-PCS; CPT 43235; principal; 2025-03-07 08:10)
DX: K21.9 Gastro-esophageal reflux disease without esophagitis (principal); K31.7 Polyp of stomach and duodenum; K29.70 Gastritis, unspecified, without bleeding; Z79.899 Other long term (current) drug therapy
CPT/HCPCS: 43239; 81025; 88305; 88342; J2405